=== PATIENT | male | born 1940 | race African-American/Black ===

== ENCOUNTER 2017-06-07 19:41 | Inpatient (IN) | payer MEDICARE, MEDICAID ==
[~2017-06-07] VITALS: Ht 180.3 cm; Wt 113.9 kg
[2017-06-07] MEDS ORDERED: Metoprolol 5mg/5ml Inj IVP ONE (19:45)
[2017-06-07] MEDS ORDERED: XANAX1 MG ORAL (19:46)
[2017-06-07] MEDS ORDERED: ASPIRIN81 MG ORAL (19:46)
[2017-06-07] MEDS ORDERED: PLAVIX75 MG ORAL (19:46)
[2017-06-07] MEDS ORDERED: METOPROLOL TART50 MG ORAL (19:46)
[2017-06-07] MEDS ORDERED: VITAMIN D250000 UNI1 ORAL (19:46)
[2017-06-07] MEDS ORDERED: ATORVASTATIN CA40 MG ORAL (19:46)
[2017-06-07 20:45] LABS: BASOPHILS % (AUTO) 1.2 % (0.0-2.0); EOSINOPHILS % (AUTO) 1.1 % (0.0-3.0); LYMPHOCYTES % (AUTO) 27.3 % (20.0-45.0); MEAN CORPUSCULAR HEMOGLOBIN 32.6 PG (27.0-31.0); MEAN CORPUSCULAR HGB CONC 33.6 G/DL (32.0-36.0); MEAN CORPUSCULAR VOLUME 97 FL (80-99); MEAN PLATELET VOLUME 7.6 FL (6.5-10.1); MONOCYTES % (AUTO) 7.5 % (1.0-10.0); NEUTROPHILS % (AUTO) 62.9 % (45.0-75.0); PLATELET COUNT 217 K/UL (150-450); RED BLOOD COUNT 4.25 M/UL (4.70-6.10); RED CELL DISTRIBUTION WIDTH 12.7 % (11.6-14.8); WHITE BLOOD COUNT 8.3 K/UL (4.8-10.8)
[2017-06-07 21:09] LABS: ALANINE AMINOTRANSFERASE 40 U/L (3-41); ALBUMIN/GLOBULIN RATIO 1.3 (1.0-2.7); ANION GAP 12 (5-15); ASPARTATE AMINO TRANSFERASE 34 U/L (5-40); CALCIUM 9.4 mg/dL (8.6-10.2); CARBON DIOXIDE 28 mEQ/L (20-30); CHLORIDE 101 mEQ/L (98-107); CREATININE 1.7 mg/dL (0.7-1.2); HEMOLYSIS 75; POTASSIUM 4.9 mEQ/L (3.4-4.9); SODIUM 141 mEQ/L (135-145); TOTAL PROTEIN 7.2 g/dL (6.6-8.7); TROPONIN I < 0.30 ng/mL (<=0.30)
[2017-06-07 21:19] LABS: CKMB 4.2 ng/mL (< 6.7)
[2017-06-07 21:29] LABS: APPEARANCE,URINE CLEAR; KETONES,URINE NEGATIVE (NEGATIVE); LEUKOCYTE ESTERASE ,URINE NEGATIVE (NEGATIVE); NITRITE,URINE NEGATIVE (NEGATIVE); PH,URINE 5 (4.5-8.0); PROTEIN,URINE 3+ (NEGATIVE); UROBILINOGEN,URINE 1 MG/DL (0.0-1.0)
[2017-06-07 21:53] VITALS: BP 141/84
[2017-06-07 21:57] LABS: RBC,URINE 0-2 /HPF (0 - 0); SQUAMOUS EPITHELIAL CELL,UR OCCASIONAL /LPF (NONE/OCC); WBC,URINE 0-2 /HPF (0 - 0)
[2017-06-07 21:58] LABS: BACTERIA,URINE FEW /HPF
[2017-06-07 22:04] LABS: ICTOTEST NEGATIVE
[2017-06-07] MEDS ORDERED: Diltiazem 25mg/5ml IV ONE ×2 (22:30→23:00)
[2017-06-07] MEDS ORDERED: Diltiazem 125mg/25ml Inj IV ONE (22:59)
[2017-06-07 23:42] VITALS: BP 131/92
[2017-06-08] VITALS (7 sets, daily range): BP systolic 119–146; BP diastolic 60–81
--- NOTE | 2017-06-08 00:55 | Emergency Room Report ---
History of Present Illness General Chief Complaint: Dyspnea/Respdistress Source: Patient Present Illness HPI Patient is 76-year-old male who presented after increased her dose of breath. A gradual onset of symptoms. Patient had prior history of triple-vessel bypass disease. He denies any prior history of congestive heart failure. He states he was recently seen by his doctor and was prescribed a medication which he was unable to fill due to expense. The patient stated that he had not been taking diuretics. He stated that he recently eaten some salty food. He began having increased shortness of breath. He denied any chest discomfort. Allergies: Coded Allergies: No Known Allergies (Unverified , 06/07/17) Patient History Past Medical History: see triage record Reviewed Nursing Documentation: PMH: Agreed, PSxH: Agreed Nursing Documentation-PMH Hx Cardiac Problems: Yes - TRIPLE BYPASS Hx Hypertension: Yes Hx Diabetes: Yes - BORDERLINE Review of Systems All Other Systems: negative except mentioned in HPI Physical Exam Vital Signs Date Time Temp Pulse Resp B/P (MAP) Pulse Ox O2 Delivery O2 Flow Rate FiO2 06/07/17 19:37 98.2 110 18 147/80 98 Room Air Sp02 EP Interpretation: reviewed, normal General Appearance: normal inspection, well appearing, alert, GCS 15, mild distress Head: atraumatic ENT: normal ENT inspection, hearing grossly normal, normal voice Neck: normal inspection, full range of motion, supple, no bony tend Respiratory: normal inspection, normal breath sounds, no respiratory distress, no retraction, no wheezing, rales Cardiovascular #1: regular rate, rhythm, no edema Gastrointestinal: normal inspection, normal bowel sounds, non tender, soft, no guarding, no hernia Genitourinary: no CVA tenderness Musculoskeletal: normal inspection, back normal, normal range of motion Neurologic: normal inspection, alert, oriented x3, responsive, worm packer III-XII nml as tested, speech normal Psychiatric: normal inspection, judgement/insight normal, mood/affect normal Skin: normal inspection, normal color, no rash Medical Decision Making Diagnostic Impression: Primary Impression: CHF (congestive heart failure) Additional Impression: Atrial fibrillation with RVR ER Course Patient presented for shortness of breath. Differential included but was not limited to anemia, pneumonia, pneumothorax, myocardial infarction, pericardial effusion, congestive heart failure, acidosis. Because of complexity of patient' s case laboratory testing and imaging studies were ordered. EKG interpreted by me showed atrial fibrillation with rapid ventricular response. Patient was given IV metoprolol as well as IV Cardizem. He was given IV Lasix for CHF. Dr. Lele Kellogg was contacted for inpatient management. Patient's initial troponin was negative. Labs Test 06/07/17 20:35 06/07/17 20:40 White Blood Count 8.3 K/UL (4.8-10.8) Red Blood Count 4.25 M/UL (4.70-6.10) Hemoglobin 13.9 G/DL (14.2-18.0) Hematocrit 41.3 % (42.0-52.0) Mean Corpuscular Volume 97 FL (80-99) Mean Corpuscular Hemoglobin 32.6 PG (27.0-31.0) Mean Corpuscular Hemoglobin Concent 33.6 G/DL (32.0-36.0) Red Cell Distribution Width 12.7 % (11.6-14.8) Platelet Count 217 K/UL (150-450) Mean Platelet Volume 7.6 FL (6.5-10.1) Neutrophils (%) (Auto) 62.9 % (45.0-75.0) Lymphocytes (%) (Auto) 27.3 % (20.0-45.0) Monocytes (%) (Auto) 7.5 % (1.0-10.0) Eosinophils (%) (Auto) 1.1 % (0.0-3.0) Basophils (%) (Auto) 1.2 % (0.0-2.0) Sodium Level 141 mEQ/L (135-145) Potassium Level 4.9 mEQ/L (3.4-4.9) Chloride Level 101 mEQ/L (98-107) Carbon Dioxide Level 28 mEQ/L (20-30) Anion Gap 12 (5-15) Blood Urea Nitrogen 23 mg/dL (7-23) Creatinine 1.7 mg/dL (0.7-1.2) Estimat Glomerular Filtration Rate mL/min (>60) Glucose Level 136 mg/dL (74-106) Calcium Level 9.4 mg/dL (8.6-10.2) Total Bilirubin 0.8 mg/dL (0.0-1.2) Aspartate Amino Transf (AST/SGOT) 34 U/L (5-40) Alanine Aminotransferase (ALT/SGPT) 40 U/L (3-41) Alkaline Phosphatase 42 U/L (40-129) Total Creatine Kinase 255 U/L (38-174) Creatine Kinase MB 4.2 ng/mL (< 6.7) Creatine Kinase MB Relative Index 1.6 Troponin I < 0.30 ng/mL (<=0.30) Pro-B-Type Natriuretic Peptide 1263 pg/mL (0-450) Total Protein 7.2 g/dL (6.6-8.7) Albumin 4.1 g/dL (3.5-5.2) Globulin 3.1 g/dL Albumin/Globulin Ratio 1.3 (1.0-2.7) Urine Color Yellow Urine Appearance Clear Urine pH 5 (4.5-8.0) Urine Specific [place] 1.025 (1.005-1.035) Urine Protein 3+ (NEGATIVE) Urine Glucose (UA) Negative (NEGATIVE) Urine Ketones Negative (NEGATIVE) Urine Occult Blood Negative (NEGATIVE) Urine Nitrite Negative (NEGATIVE) Urine Bilirubin 1+ (NEGATIVE) Urine Ictotest Negative Urine Urobilinogen 1 MG/DL (0.0-1.0) Urine Leukocyte Esterase Negative (NEGATIVE) Urine RBC 0-2 /HPF (0 - 0) Urine WBC 0-2 /HPF (0 - 0) Urine Squamous Epithelial Cells Occasional /LPF Urine Bacteria Few /HPF (NONE) EKG Diagnostic Results Rate: tachycardiac Rhythm: NSR ST Segments: no acute changes ASA given to the pt in ED: No Rhythm Strip Diag. Results EP Interpretation: yes Rhythm: NSR, no PVC's, no ectopy Last Vital Signs Date Time Temp Pulse Resp B/P (MAP) Pulse Ox O2 Delivery O2 Flow Rate FiO2 06/07/17 23:42 89 24 131/92 99 Room Air 06/07/17 21:53 97.9 Status: unchanged Disposition: ADMITTED INPATIENT Condition: Serious Referrals: NON PHYSICIAN (PCP) Piyush Nolasco Jun 08, 2017 00:55
[2017-06-08] MEDS: ALPRAZolam 0.5mg tab ORAL PRN ×2 (02:37→21:35)
[2017-06-08] MEDS: Metoprolol Tartrate 50mg tab ORAL SCH ×3 (02:42→21:32)
[2017-06-08] MEDS ORDERED: ALPRAZOLAM1 MG ORAL (03:15)
[2017-06-08] MEDS ORDERED: ACETAMINOPHEN-1 EAC1 ORAL (03:15)
[2017-06-08] MEDS: Aspirin Baby 81mg ORAL SCH (09:01)
[2017-06-08] MEDS: Heparin 5000 units/ml inj SUBQ SCH ×2 (09:23→21:33)
[2017-06-08 10:51] LABS: TROPONIN I < 0.30 ng/mL (<=0.30)
[2017-06-08 10:56] LABS: ALANINE AMINOTRANSFERASE 33 U/L (3-41); ALBUMIN/GLOBULIN RATIO 1.5 (1.0-2.7); ANION GAP 11 (5-15); ASPARTATE AMINO TRANSFERASE 21 U/L (5-40); CALCIUM 9.7 mg/dL (8.6-10.2); CARBON DIOXIDE 31 mEQ/L (20-30); CHLORIDE 100 mEQ/L (98-107); CHOLESTEROL 121 mg/dL (< 200); CHOLESTEROL/HDL RATIO 3.1 (3.3-4.4); CREATININE 2.1 mg/dL (0.7-1.2); HEMOLYSIS 10; LDL CHOLESTEROL (CALC.) 61 mg/dL (60-99); POTASSIUM 4.9 mEQ/L (3.4-4.9); SODIUM 142 mEQ/L (135-145)
--- NOTE | 2017-06-08 11:24 | History & Physical ---
History and Physical History & Physicial HPI 76-year-old male presented to the ER with increasing shortness of breath and unable to manage at home. He noted the symptoms to be gradual. Patient had prior history of triple-vessel bypass disease. He denies any prior history of congestive heart failure. He states he was recently seen by his doctor but did not fill the recommended medications. The patient stated that he had not been taking diuretics prior. He denies chest pain or radiation of pain. He denies cough or sputum Allergies: No Known Allergies (Unverified , 06/07/17) Past Medical History: CAD, diabetes, HTN Reviewed of systems: as above medications/allergies: reviewed Physical exam: WDWN NAD reduced breath sounds bilaterally with some crackles [id number] without MRG NABS nontender no HSM no CC noted edema weak with some confusion nonfocal Labs Test 06/07/17 20:35 06/07/17 20:40 06/08/17 09:45 White Blood Count 8.3 K/UL (4.8-10.8) Red Blood Count 4.25 M/UL (4.70-6.10) Hemoglobin 13.9 G/DL (14.2-18.0) Hematocrit 41.3 % (42.0-52.0) Mean Corpuscular Volume 97 FL (80-99) Mean Corpuscular Hemoglobin 32.6 PG (27.0-31.0) Mean Corpuscular Hemoglobin Concent 33.6 G/DL (32.0-36.0) Red Cell Distribution Width 12.7 % (11.6-14.8) Platelet Count 217 K/UL (150-450) Mean Platelet Volume 7.6 FL (6.5-10.1) Neutrophils (%) (Auto) 62.9 % (45.0-75.0) Lymphocytes (%) (Auto) 27.3 % (20.0-45.0) Monocytes (%) (Auto) 7.5 % (1.0-10.0) Eosinophils (%) (Auto) 1.1 % (0.0-3.0) Basophils (%) (Auto) 1.2 % (0.0-2.0) Sodium Level 141 mEQ/L (135-145) 142 mEQ/L (135-145) Potassium Level 4.9 mEQ/L (3.4-4.9) 4.9 mEQ/L (3.4-4.9) Chloride Level 101 mEQ/L (98-107) 100 mEQ/L (98-107) Carbon Dioxide Level 28 mEQ/L (20-30) 31 mEQ/L (20-30) Anion Gap 12 (5-15) 11 (5-15) Blood Urea Nitrogen 23 mg/dL (7-23) 29 mg/dL (7-23) Creatinine 1.7 mg/dL (0.7-1.2) 2.1 mg/dL (0.7-1.2) Estimat Glomerular Filtration Rate mL/min (>60) mL/min (>60) Glucose Level 136 mg/dL (74-106) 133 mg/dL (74-106) Calcium Level 9.4 mg/dL (8.6-10.2) 9.7 mg/dL (8.6-10.2) Total Bilirubin 0.8 mg/dL (0.0-1.2) 1.0 mg/dL (0.0-1.2) Aspartate Amino Transf (AST/SGOT) 34 U/L (5-40) 21 U/L (5-40) Alanine Aminotransferase (ALT/SGPT) 40 U/L (3-41) 33 U/L (3-41) Alkaline Phosphatase 42 U/L (40-129) 45 U/L (40-129) Total Creatine Kinase 255 U/L (38-174) Creatine Kinase MB 4.2 ng/mL (< 6.7) Creatine Kinase MB Relative Index 1.6 Troponin I < 0.30 ng/mL (<=0.30) < 0.30 ng/mL (<=0.30) Pro-B-Type Natriuretic Peptide 1263 pg/mL (0-450) Total Protein 7.2 g/dL (6.6-8.7) 7.0 g/dL (6.6-8.7) Albumin 4.1 g/dL (3.5-5.2) 4.3 g/dL (3.5-5.2) Globulin 3.1 g/dL 2.7 g/dL Albumin/Globulin Ratio 1.3 (1.0-2.7) 1.5 (1.0-2.7) Urine Color Yellow Urine Appearance Clear Urine pH 5 (4.5-8.0) Urine Specific [place] 1.025 (1.005-1.035) Urine Protein 3+ (NEGATIVE) Urine Glucose (UA) Negative (NEGATIVE) Urine Ketones Negative (NEGATIVE) Urine Occult Blood Negative (NEGATIVE) Urine Nitrite Negative (NEGATIVE) Urine Bilirubin 1+ (NEGATIVE) Urine Ictotest Negative Urine Urobilinogen 1 MG/DL (0.0-1.0) Urine Leukocyte Esterase Negative (NEGATIVE) Urine RBC 0-2 /HPF (0 - 0) Urine WBC 0-2 /HPF (0 - 0) Urine Squamous Epithelial Cells Occasional /LPF Urine Bacteria Few /HPF (NONE) Triglycerides Level 105 mg/dL (< 150) Cholesterol Level 121 mg/dL (< 200) LDL Cholesterol 61 mg/dL (60-99) HDL Cholesterol 39 mg/dL (> 60) Cholesterol/HDL Ratio 3.1 (3.3-4.4) Thyroid Stimulating Hormone (TSH) 1.500 uIU/mL (0.300-4.500) IMPRESSION pulmonary edema respiratory insufficiency renal insufficiency, chronic CAD CABG diabetes hypertension PLAN diurese heparin sq aspirin followup labs and cxr PT may need short term rehab impression, plan, and exam edited and reviewed in detail care discussed with SHIMON MAHAJAN Jun 08, 2017 11:24
--- NOTE | 2017-06-08 12:47 | Diagnostic Imaging Report ---
Indication: Dyspnea Comparison: None A single view chest radiograph was obtained. Findings: No definite infiltrate or pulmonary vascular congestion identified. Lung volumes are low but clear. Sternotomy noted. The heart is enlarged. The aorta is mildly enlarged consistent with atherosclerotic vascular disease. The bones are osteopenic. Impression: No acute disease
[2017-06-09 00:03] VITALS: BP 103/67
[2017-06-09 03:52] VITALS: BP 130/104
[2017-06-09] MEDS ORDERED: Metoprolol Tartrate 50mg tab ORAL ONE (04:00)
[2017-06-09 07:45] VITALS: BP 109/61
--- NOTE | 2017-06-09 08:31 | Consultation ---
DATE OF CONSULTATION: CARDIOLOGY CONSULTATION REQUESTING PHYSICIAN: Lele Kellogg M.D. Reason For Consultation: Shortness of breath in the setting of ischemic heart disease and elevated natriuretic peptide assay. History Of Present Illness: This 76-year-old male, was seen in the emergency room earlier with complaints of shortness of breath. He notes the onset being gradual progressing over a day or 2 and worsening this evening to the point where he has to come to the emergency room for evaluation. The patient was recently seen by his primary care physician and started a new medication, although he was not able to fill it due to cost. The patient denies taking any diuretic therapy at home. He has been compliant with his other medications. He has been re-eating some salty foods. He has not had any chest pain. In the emergency room, the patient had a blood pressure 147/80, heart rate 110 and respiratory rate 18. He was afebrile. He was given a dose of intravenous furosemide and admitted to the cardiac observation unit. Past Medical History: Includes hypertension, coronary artery disease, history of coronary artery bypass graft surgery, type 2 diabetes mellitus, possible hyperlipidemia. Medications: Prior to admission, reviewed and reconciled although patient is unable to give a complete list. ALLERGIES: None known. SOCIAL HISTORY: Denies smoking, alcohol, or substance abuse. Review Of Systems: No fevers. No cough. No leg swelling. No difficulty voiding. No change in bowel habits. No history of asthma or blood clots in the legs. No history of prostate cancer. No history of seizure or stroke. Diabetes managed with diet alone. The patient unaware of his cholesterol level. PHYSICAL EXAMINATION: Vital Signs: Blood pressure 131/92, pulse 89, respirations 24. No fever. Room air oxygen saturation 99%. Neck: Supple. Jugular venous pressure is slightly elevated. No thyromegaly. No accessory muscle use. Lungs: With few rales. Chest wall without deformity. Median sternotomy scar. CARDIAC: Irregularly irregular rate and rhythm. ABDOMEN: Soft. EXTREMITIES: Trace edema. Laboratory Data: White count 8.3, hemoglobin 13.9, potassium 4.9, BUN 23, and creatinine 1.7. Troponin negative. Pro-natriuretic peptide 1263. IMPRESSION: 1. Acute diastolic congestive heart failure. 2. Ischemic cardiomyopathy. 3. Chronic kidney disease. 4. Hypertensive heart disease. 5. Paroxysmal atrial fibrillation. 6. Type 2 diabetes mellitus. 7. History of coronary artery bypass graft. PLAN: 1. Cardiac monitoring. 2. Antiplatelet therapy. 3. DVT prophylaxis. 4. Beta-blockade. 5. Continue statin drug. 6. Check lipid panel. Consider full anticoagulation for cardioembolic prophylaxis if persisting atrial fibrillation noted. 7. Diuresis. 8. Titrate antihypertensive. 9. Check echocardiogram. 10. We will consider further ischemia workup depending on clinical course. Derrick Burch M.D. DR: YUE JOB#: [id number] CC:
[2017-06-09 08:35] LABS: ANION GAP 10 (5-15); CALCIUM 9.5 mg/dL (8.6-10.2); CARBON DIOXIDE 30 mEQ/L (20-30); CHLORIDE 102 mEQ/L (98-107); CREATININE 2.1 mg/dL (0.7-1.2); HEMOLYSIS 10; POTASSIUM 4.7 mEQ/L (3.4-4.9); SODIUM 142 mEQ/L (135-145)
[2017-06-09] MEDS: Metoprolol Tartrate 50mg tab ORAL SCH ×4 (09:00→20:47)
[2017-06-09] MEDS: Aspirin Baby 81mg ORAL SCH (09:19)
[2017-06-09] MEDS: Eliquis 2.5mg tablet ORAL SCH ×2 (09:19→17:16)
--- NOTE | 2017-06-09 10:26 | Diagnostic Imaging Report ---
Indication: DYSPNEA Technique: 2 views of the chest Comparison: 06/07/2017 Findings: Atelectasis is seen at both lung bases. There are small bilateral pleural effusions again demonstrated. The heart size is borderline enlarged. There are degenerative changes of the thoracic spine. There are median sternotomy sutures. Findings are overall unchanged Impression: Unchanged, over 2 days, findings as above.
[2017-06-09 12:19] VITALS: BP 103/67
--- NOTE | 2017-06-09 15:08 | General Progress Note ---
Assessment/Plan Assessment/Plan IMPRESSION pulmonary edema respiratory insufficiency renal insufficiency, chronic CAD CABG diabetes hypertension PLAN diurese as per cards heparin sq aspirin followup labs and cxr and adjust PT may need short term rehab- will discuss with patient and expedite impression, plan, and exam edited and reviewed in detail care discussed with RN Subjective Allergies: Coded Allergies: No Known Allergies (Unverified , 06/07/17) Subjective care noted some mild improvement Objective Last 24 Hour Vital Signs Date Time Temp Pulse Resp B/P (MAP) Pulse Ox O2 Delivery O2 Flow Rate FiO2 06/09/17 12:19 96.8 78 20 103/67 91 Nasal Cannula 3.5 06/09/17 12:15 91 06/09/17 09:24 78 97/59 06/09/17 08:00 93 06/09/17 07:45 97.2 78 20 109/61 99 Nasal Cannula 3.0 06/09/17 04:27 105 129/81 06/09/17 04:00 91 06/09/17 03:52 97.8 102 22 130/104 100 Nasal Cannula 3.5 102 06/09/17 03:51 97.8 102 06/09/17 00:03 96.8 78 20 103/67 91 Nasal Cannula 3.5 06/09/17 00:00 105 06/08/17 21:32 108 138/43 06/08/17 20:00 112 06/08/17 19:50 97.5 57 20 132/81 92 Nasal Cannula 3.5 06/08/17 16:00 97 06/08/17 16:00 98.0 96 20 129/63 94 Nasal Cannula 3.0 Intake and Output 06/09/17 06/10/17 19:00 07:00 Intake Total 240 ml Balance 240 ml Intake Oral 240 ml Laboratory Tests 06/09/17 07:20: Sodium Level 142, Potassium Level 4.7, Chloride Level 102, Carbon Dioxide Level 30, Anion Gap 10, Blood Urea Nitrogen 37H, Creatinine 2.1H, Estimat Glomerular Filtration Rate , Glucose Level 132H, Calcium Level 9.5, Pro-B-Type Natriuretic Peptide 1264H Height (Feet): 5 Height (Inches): 11.00 Weight (Pounds): 248 Objective WDWN NAD obese reduced breath sounds bilaterally without rhonchi or wheeze some basilar crackles [id number] without MRG NABS nontender no HSM no CC some edema nonfocal SHIMON MOHR Jun 09, 2017 15:08
[2017-06-09 16:00] VITALS: BP 135/65
[2017-06-09 20:00] VITALS: BP 130/73
--- NOTE | 2017-06-09 21:00 | Progress Note ---
DATE: 06/08/2017 CARDIOLOGY PROGRESS NOTE Subjective: The patient has less shortness of breath. Still feels fatigued with activity. No chest pain. Monitored rhythm, atrial fibrillation with episodes of rapid ventricular response. OBJECTIVE: Vital Signs: Blood pressure 132/81, pulse 112, respiratory rate 20, and afebrile. HEENT: Conjunctivae are pink. Oropharynx clear. Neck: Supple. Jugular venous pressure is slightly elevated. Carotid upstrokes without delay. LUNGS: Diminished breath sounds. No wheezing or rales. Cardiac: Irregularly irregular. Normal S1 and S2. A 1/6 systolic murmur at apex. ABDOMEN: Soft. EXTREMITIES: With trace edema. Laboratory And Diagnostic Data: Echocardiogram revealed normal ejection fraction and mild mitral regurgitation. BUN increased to 29. Creatinine increased to 2.1. Potassium 4.9. Troponin negative. Total cholesterol is 121 with LDL of 61. IMPRESSION: 1. Acute diastolic congestive heart failure. 2. Paroxysmal atrial fibrillation with increased ventricular response. 3. Ischemic cardiomyopathy with history of coronary artery bypass graft. 4. Possible myocardial infarction, acute myocardial ischemia. 5. Mitral regurgitation. 6. Hypertensive heart disease. 7. Acute on chronic renal failure. PLAN: 1. Hold diuretics. 2. Continue cardiac monitoring. 3. Advance beta-blockade for rate control. 4. Add apixaban for cardioembolic prophylaxis. 5. Recheck natriuretic peptide assay. 6. We will try to contact primary care doctor to expand database. Derrick Burch M.D. DR: GEORGES JOB#: [id number] CC:
[2017-06-10] VITALS: BP 130/73
[2017-06-10 04:00] VITALS: BP 103/65
--- NOTE | 2017-06-10 05:45 | Progress Note ---
CARDIOLOGY PROGRESS NOTE Subjective: The patient is anxious to go home. He still feels short of breath. His blood pressure was low earlier today and his metoprolol dose was held by his nursing staff, although I was not contacted. The patient now recalls more of this prior history. He notes a history of rheumatic heart disease and atrial fibrillation. He was recently given a prescription for a blood thinner, but because of the cost, he did not fill it. OBJECTIVE: Vital Signs: Blood pressure 103/68, earlier 97/59; heart rate 78 to 108; respiratory 18 to 22; and he is afebrile. HEENT: Conjunctivae are pink. Oropharynx clear. NECK: Supple and obese. Jugular venous pressure grossly normal. LUNGS: With few rales. Cardiac: Irregularly irregular. Normal S1 and S2 with a 1/6 early systolic apical murmur. ABDOMEN: Soft and nontender. EXTREMITIES: Trace dependent edema. Laboratory Data: BUN 37, creatinine 2.1, potassium 4.7, pro-natriuretic peptide 1264, unchanged. IMPRESSION: 1. Rheumatic heart disease. 2. Chronic atrial fibrillation. 3. Mitral insufficiency. 4. Acute on chronic diastolic congestive heart failure. 5. Ischemic cardiomyopathy with prior coronary artery bypass graft. 6. Acute on chronic renal failure, post diuresis. Plan: Plan is better rate control of atrial fibrillation. Metoprolol dose has been advanced. We will start apixaban for cardioembolic prophylaxis. Can discontinue Plavix and maintain low-dose aspirin. Hold angiotensin-converting enzyme inhibitor therapy for now in view of elevated creatinine and low range blood pressure. The patient wishes to follow up with his primary verification engineer at [facility]. I have stressed the benefits of anticoagulation therapy. I think apparently agreed as well. Derrick Burch M.D. DR: YUE JOB#: [id number] CC:
[2017-06-10 08:00] VITALS: BP 131/66
[2017-06-10] MEDS: Eliquis 2.5mg tablet ORAL SCH ×2 (08:19→17:22)
[2017-06-10] MEDS: Aspirin Baby 81mg ORAL SCH (08:20)
[2017-06-10] MEDS: Metoprolol Tartrate 50mg tab ORAL SCH ×2 (08:20→20:58)
--- NOTE | 2017-06-10 09:20 | General Progress Note ---
Assessment/Plan Assessment/Plan IMPRESSION pulmonary edema respiratory insufficiency renal insufficiency, chronic CAD CABG diabetes hypertension PLAN meds noted aspirin followup labs and cxr noted short term rehab- still labile impression, plan, and exam edited and reviewed in detail care discussed with RN Subjective Allergies: Coded Allergies: No Known Allergies (Unverified , 06/07/17) Subjective care noted on oxygen improvement mild sob Objective Last 24 Hour Vital Signs Date Time Temp Pulse Resp B/P (MAP) Pulse Ox O2 Delivery O2 Flow Rate FiO2 06/10/17 08:20 78 131/66 06/10/17 08:00 98.6 78 20 131/66 97 Nasal Cannula 3.0 06/10/17 08:00 113 06/10/17 04:00 100 06/10/17 04:00 97.8 74 18 103/65 94 Nasal Cannula 3.0 06/10/17 00:00 97.2 57 18 130/73 94 Nasal Cannula 3.0 06/09/17 23:37 95 06/09/17 20:47 62 130/73 06/09/17 20:05 120 06/09/17 20:00 97.7 62 18 130/73 94 Nasal Cannula 3.0 06/09/17 16:00 97.7 71 19 135/65 94 Nasal Cannula 3.0 06/09/17 16:00 97.7 71 19 135/65 94 Nasal Cannula 3.0 06/09/17 15:34 105 06/09/17 12:19 96.8 78 20 103/67 91 Nasal Cannula 3.5 06/09/17 12:15 91 Intake and Output 06/10/17 06/11/17 19:00 07:00 Intake Total 430 ml Balance 430 ml Intake Oral 430 ml Labs Test 06/07/17 20:35 06/07/17 20:40 06/08/17 09:45 06/09/17 07:20 White Blood Count 8.3 K/UL (4.8-10.8) Red Blood Count 4.25 M/UL (4.70-6.10) Hemoglobin 13.9 G/DL (14.2-18.0) Hematocrit 41.3 % (42.0-52.0) Mean Corpuscular Volume 97 FL (80-99) Mean Corpuscular Hemoglobin 32.6 PG (27.0-31.0) Mean Corpuscular Hemoglobin Concent 33.6 G/DL (32.0-36.0) Red Cell Distribution Width 12.7 % (11.6-14.8) Platelet Count 217 K/UL (150-450) Mean Platelet Volume 7.6 FL (6.5-10.1) Neutrophils (%) (Auto) 62.9 % (45.0-75.0) Lymphocytes (%) (Auto) 27.3 % (20.0-45.0) Monocytes (%) (Auto) 7.5 % (1.0-10.0) Eosinophils (%) (Auto) 1.1 % (0.0-3.0) Basophils (%) (Auto) 1.2 % (0.0-2.0) Sodium Level 141 mEQ/L (135-145) 142 mEQ/L (135-145) 142 mEQ/L (135-145) Potassium Level 4.9 mEQ/L (3.4-4.9) 4.9 mEQ/L (3.4-4.9) 4.7 mEQ/L (3.4-4.9) Chloride Level 101 mEQ/L (98-107) 100 mEQ/L (98-107) 102 mEQ/L (98-107) Carbon Dioxide Level 28 mEQ/L (20-30) 31 mEQ/L (20-30) 30 mEQ/L (20-30) Anion Gap 12 (5-15) 11 (5-15) 10 (5-15) Blood Urea Nitrogen 23 mg/dL (7-23) 29 mg/dL (7-23) 37 mg/dL (7-23) Creatinine 1.7 mg/dL (0.7-1.2) 2.1 mg/dL (0.7-1.2) 2.1 mg/dL (0.7-1.2) Estimat Glomerular Filtration Rate mL/min (>60) mL/min (>60) mL/min (>60) Glucose Level 136 mg/dL (74-106) 133 mg/dL (74-106) 132 mg/dL (74-106) Calcium Level 9.4 mg/dL (8.6-10.2) 9.7 mg/dL (8.6-10.2) 9.5 mg/dL (8.6-10.2) Total Bilirubin 0.8 mg/dL (0.0-1.2) 1.0 mg/dL (0.0-1.2) Aspartate Amino Transf (AST/SGOT) 34 U/L (5-40) 21 U/L (5-40) Alanine Aminotransferase (ALT/SGPT) 40 U/L (3-41) 33 U/L (3-41) Alkaline Phosphatase 42 U/L (40-129) 45 U/L (40-129) Total Creatine Kinase 255 U/L (38-174) Creatine Kinase MB 4.2 ng/mL (< 6.7) Creatine Kinase MB Relative Index 1.6 Troponin I < 0.30 ng/mL (<=0.30) < 0.30 ng/mL (<=0.30) Pro-B-Type Natriuretic Peptide 1263 pg/mL (0-450) 1264 pg/mL (0-450) Total Protein 7.2 g/dL (6.6-8.7) 7.0 g/dL (6.6-8.7) Albumin 4.1 g/dL (3.5-5.2) 4.3 g/dL (3.5-5.2) Globulin 3.1 g/dL 2.7 g/dL Albumin/Globulin Ratio 1.3 (1.0-2.7) 1.5 (1.0-2.7) Urine Color Yellow Urine Appearance Clear Urine pH 5 (4.5-8.0) Urine Specific [place] 1.025 (1.005-1.035) Urine Protein 3+ (NEGATIVE) Urine Glucose (UA) Negative (NEGATIVE) Urine Ketones Negative (NEGATIVE) Urine Occult Blood Negative (NEGATIVE) Urine Nitrite Negative (NEGATIVE) Urine Bilirubin 1+ (NEGATIVE) Urine Ictotest Negative Urine Urobilinogen 1 MG/DL (0.0-1.0) Urine Leukocyte Esterase Negative (NEGATIVE) Urine RBC 0-2 /HPF (0 - 0) Urine WBC 0-2 /HPF (0 - 0) Urine Squamous Epithelial Cells Occasional /LPF Urine Bacteria Few /HPF (NONE) Triglycerides Level 105 mg/dL (< 150) Cholesterol Level 121 mg/dL (< 200) LDL Cholesterol 61 mg/dL (60-99) HDL Cholesterol 39 mg/dL (> 60) Cholesterol/HDL Ratio 3.1 (3.3-4.4) Thyroid Stimulating Hormone (TSH) 1.500 uIU/mL (0.300-4.500) Height (Feet): 5 Height (Inches): 11.00 Weight (Pounds): 251 Objective WDWN NAD obese reduced breath sounds bilaterally without rhonchi or wheeze some basilar crackles [id number] without MRG NABS nontender no HSM no CC some edema nonfocal SHIMON MOHR Jun 10, 2017 09:20
[2017-06-10] MEDS ORDERED: ALPRAZOLAM1 M2 ORAL (10:54)
[2017-06-10] MEDS ORDERED: ELIQUIS5 MG PO (10:55)
[2017-06-10] MEDS ORDERED: ATORVASTATIN CA10 MG ORAL (10:56)
[2017-06-10] MEDS ORDERED: METOPROLOL TAR100 M1 ORAL (10:57)
[2017-06-10 11:41] VITALS: BP 134/69
[2017-06-10 16:42] VITALS: BP 116/62
[2017-06-10 20:00] VITALS: BP 118/70
[2017-06-11] VITALS: BP 109/70
[2017-06-11 04:00] VITALS: BP 114/67
--- NOTE | 2017-06-11 06:00 | Progress Note ---
DATE: 06/10/2017 CARDIOLOGY PROGRESS NOTE Subjective: The patient has less shortness of breath. Still feels weak. No leg swelling. No palpitations. Monitor atrial fibrillation. Rates labile, but overall control and improved. Heart rate is 57 to 113. OBJECTIVE: Vital Signs: Blood pressure exam 131/66, pulse 78, and respiratory rate 20. NECK: Supple. LUNGS: Clear. Cardiac: Irregularly irregular. Normal S1 and S2. A 1/6 apical murmur. ABDOMEN: Soft. EXTREMITIES: No edema. IMPRESSION: 1. Atrial fibrillation with rapid ventricular response, improved. 2. Acute on chronic renal failure post diuresis. 3. Rheumatic heart disease. 4. Acute on chronic diastolic congestive heart failure functionally decline. 5. Mild hypoxia with oxygen saturation of 91% on room air. PLAN: 1. Continue apixaban for cardioembolic prophylaxis. 2. Titrate beta-yovani for rate control. If blood pressure parameters increased may add angiotensin-converting enzyme inhibitor. 3. Recheck laboratory studies. 4. Physical and occupational therapy. Derrick Burch M.D. DR: GEORGES JOB#: [id number] CC:
[2017-06-11 08:00] VITALS: BP 122/63
[2017-06-11] MEDS: Aspirin Baby 81mg ORAL SCH (08:42)
[2017-06-11] MEDS: Eliquis 2.5mg tablet ORAL SCH (08:42)
[2017-06-11 08:43] VITALS: BP 122/63
[2017-06-11] MEDS: Metoprolol Tartrate 50mg tab ORAL SCH (08:43)
[2017-06-11 08:45] LABS: BASOPHILS % (AUTO) 0.9 % (0.0-2.0); EOSINOPHILS % (AUTO) 1.4 % (0.0-3.0); LYMPHOCYTES % (AUTO) 31.9 % (20.0-45.0); MEAN CORPUSCULAR HEMOGLOBIN 31.5 PG (27.0-31.0); MEAN CORPUSCULAR VOLUME 99 FL (80-99); MEAN PLATELET VOLUME 6.9 FL (6.5-10.1); MONOCYTES % (AUTO) 8.8 % (1.0-10.0); PLATELET COUNT 219 K/UL (150-450); RED BLOOD COUNT 4.55 M/UL (4.70-6.10); RED CELL DISTRIBUTION WIDTH 12.9 % (11.6-14.8); WHITE BLOOD COUNT 7.2 K/UL (4.8-10.8)
[2017-06-11 09:02] LABS: ALANINE AMINOTRANSFERASE 20 U/L (3-41); ALBUMIN/GLOBULIN RATIO 1.2 (1.0-2.7); ANION GAP 9 (5-15); ASPARTATE AMINO TRANSFERASE 16 U/L (5-40); CALCIUM 9.4 mg/dL (8.6-10.2); CARBON DIOXIDE 30 mEQ/L (20-30); CHLORIDE 102 mEQ/L (98-107); CREATININE 1.7 mg/dL (0.7-1.2); HEMOLYSIS 4; MAGNESIUM 2.4 mg/dL (1.7-2.5); POTASSIUM 4.6 mEQ/L (3.4-4.9); SODIUM 141 mEQ/L (135-145); TOTAL PROTEIN 7.3 g/dL (6.6-8.7)
--- NOTE | 2017-06-11 10:08 | General Progress Note ---
Assessment/Plan Assessment/Plan IMPRESSION pulmonary edema respiratory insufficiency renal insufficiency, chronic CAD CABG diabetes hypertension PLAN meds noted aspirin followup labs and cxr noted short term rehab- still labile and requires PT monitor labs closely after dc reviewed current labs patient agreeable to plan impression, plan, and exam edited and reviewed in detail care discussed with RN Subjective Allergies: Coded Allergies: No Known Allergies (Unverified , 06/07/17) Subjective care noted on oxygen improvement mild sob unsteady with activity Objective Last 24 Hour Vital Signs Date Time Temp Pulse Resp B/P (MAP) Pulse Ox O2 Delivery O2 Flow Rate FiO2 06/11/17 08:43 101 122/63 06/11/17 08:00 102 06/11/17 08:00 96.4 101 23 122/63 95 Nasal Cannula 3.0 06/11/17 04:00 97.3 77 19 114/67 95 Nasal Cannula 3.0 06/11/17 03:22 95 06/11/17 00:00 97.3 66 20 109/70 95 Nasal Cannula 3.0 06/10/17 23:46 91 06/10/17 20:58 100 118/70 06/10/17 20:00 97.6 82 20 118/70 97 Nasal Cannula 3.0 06/10/17 19:04 90 06/10/17 16:42 98.0 82 18 116/62 91 Room Air 06/10/17 12:00 94 06/10/17 11:41 98.4 82 20 134/69 96 Nasal Cannula 2.0 Intake and Output 06/11/17 06/12/17 19:00 07:00 Intake Total 260 ml Balance 260 ml Intake Oral 260 ml Laboratory Tests 06/11/17 07:20: White Blood Count 7.2, Red Blood Count 4.55L, Hemoglobin 14.4, Hematocrit 44.9, Mean Corpuscular Volume 99, Mean Corpuscular Hemoglobin 31.5H, Mean Corpuscular Hemoglobin Concent 32.0, Red Cell Distribution Width 12.9, Platelet Count 219, Mean Platelet Volume 6.9, Neutrophils (%) (Auto) 57.0, Lymphocytes (%) (Auto) 31.9, Monocytes (%) (Auto) 8.8, Eosinophils (%) (Auto) 1.4, Basophils (%) (Auto ) 0.9, Sodium Level 141, Potassium Level 4.6, Chloride Level 102, Carbon Dioxide Level 30, Anion Gap 9, Blood Urea Nitrogen 35H, Creatinine 1.7H, Estimat Glomerular Filtration Rate , Glucose Level 112H, Calcium Level 9.4, Magnesium Level 2.4, Total Bilirubin 0.9, Aspartate Amino Transf (AST/SGOT) 16, Alanine Aminotransferase (ALT/SGPT) 20, Alkaline Phosphatase 41, Pro-B-Type Natriuretic Peptide 1334H, Total Protein 7.3, Albumin 4.0, Globulin 3.3, Albumin /Globulin Ratio 1.2 Height (Feet): 5 Height (Inches): 11.00 Weight (Pounds): 251 Objective WDWN NAD obese reduced breath sounds bilaterally without rhonchi or wheeze some basilar crackles [id number] without MRG NABS nontender no HSM no CC some edema nonfocal SHIMON MOHR Jun 11, 2017 10:08
[2017-06-11] MEDS ORDERED: NS Irrig 1000ml ONE (11:14)
--- NOTE | 2017-06-11 23:13 | Diagnostic Imaging Report ---
APPROVED REPORT CPT Code: 14275 Present Symptoms Comments: Hip pain BILATERAL: Imaging reveals a patent deep venous system bilaterally. There is no evidence of thrombus within the femoral, popliteal or tibial segments. The greater saphenous veins are also within normal limits. Doppler indicates normal spontaneous flow within these segments.
--- NOTE | 2017-06-12 01:30 | Progress Note ---
DATE: 06/11/2017 Subjective: The patient without new complaints, still with some shortness of breath. Episodes of rapid heart rate. OBJECTIVE: Vital Signs: Blood pressure 122/63, heart rate 101, respiratory rate 19 to 23. He is afebrile. NECK: Supple. Jugular venous pressure normal. LUNGS: Clear. CARDIAC: Irregularly irregular. Normal S1 and S2. ABDOMEN: Soft. EXTREMITIES: Trace edema. Laboratory and Diagnostic Data: White count to 7.2, hemoglobin 14. Potassium 4.6, BUN 35, creatinine 1.7. Pro-natriuretic peptide is 1300. IMPRESSION: 1. Atrial fibrillation with improved rate control. 2. Chronic diastolic congestive heart failure. 3. Rheumatic heart disease. 4. Mitral regurgitation. 5. Hypertensive heart disease. 6. Chronic kidney disease with exacerbation post diuresis, now resolved. PLAN: 1. Agree with rehabilitation. 2. Titrate Cardizem for rate control. 3. May need digitalis. 4. No current need for diuresis. 5. Maintain Apixaban for cardioembolic prophylaxis. Derrick Burch M.D. DR: ANJELICA JOB#: [id number] CC:
--- NOTE | 2017-06-12 13:58 | Discharge Summary ---
Discharge Summary Hospital Course Date of Admission Jun 07, 2017 at 22:16 Date of Discharge Jun 11, 2017 at 11:15 Admitting Diagnosis CHF HPI Nick Ibrahim is a 76 year old male who was admitted on Jun 07, 2017 at 22 :16 for Congestive Heart Failure Hospital Course dc summary #[id number] Discharge Medications Continued Medications: Alprazolam* (Xanax*) 1 Mg Tablet 1 MG ORAL TWICE A DAY PRN for For Anxiety, TAB Apixaban (Eliquis) 5 Mg Tablet 5 MG PO TWICE A DAY, TAB Aspirin* (Aspirin*) 81 Mg Tab.chew 81 MG ORAL DAILY, TAB Atorvastatin Calcium* (Lipitor*) 10 Mg Tablet 10 MG ORAL BEDTIME, TAB Metoprolol Tartrate* (Metoprolol Tartrate*) 100 Mg Tablet 100 MG ORAL EVERY 12 HOURS, TAB Discontinued Medications: Acetaminophen With Codeine (T#3) (Tylenol #3 Tab*) Y Tab 1 TAB ORAL PRN for For Pain, TAB Alprazolam (Alprazolam) 1 Mg Tab.rapdis 1 MG ORAL BID PRN for For Anxiety, TAB Atorvastatin Calcium* (Atorvastatin Calcium*) 40 Mg Tablet 40 MG ORAL BEDTIME, TAB Clopidogrel Bisulfate* (Plavix*) 75 Mg Tablet 75 MG ORAL DAILY, TAB Ergocalciferol (Vitamin D2)* (Vitamin D*) 50,000 Unit Capsule [id number] UNIT ORAL ONCE A WEEK, CAP Metoprolol Tartrate* (Metoprolol Tartrate*) 50 Mg Tablet 50 MG ORAL EVERY 12 HOURS, TAB 0 Refills Discharge Discharge Disposition Patient was discharged to SNF/Subacute Facility(03) Discharge Diagnoses: Discharge Instructions Discharge Instructions Special Instructions I have been assigned to complete a D/C Summary on this account. I was not involved in the patient management Alva Santos NP (Vanchtein) Jun 12, 2017 13:58
--- NOTE | 2017-06-12 16:09 | Cardiology Report ---
APPROVED REPORT EXAM: Two-dimensional and M-mode echocardiogram with Doppler and color Doppler. INDICATION Congestive Heart Failure M-Mode DIMENSIONS IVSd1.7 (0.7-1.1cm)Left Atrium (MM)4.9 (1.6-4.0cm) LVDd3.1 (3.5-5.6cm)Aortic Root3.6 (2.0-3.7cm) PWd1.5 (0.7-1.1cm)Aortic Cusp Exc.2.2 (1.5-2.0cm) LVDs1.8 (2.5-4.0cm) PWs1.6 cm Normal left ventricular chamber size, systolic function and wall motion. Left ventricular ejection fraction estimated to be 55-60%. No evidence of left ventricular hypertrophy. No evidence of pericardial effusion. Right cardiac chamber sizes are within normal limits. Mild left atrial enlargement by 2D. Mild focal aortic valve sclerosis with adequate cusp excursion. Thickened mitral valve leaflets with normal excursion. Normal mitral annulus and aortic root calcification. Pulmonic valve not well visualized. Normal tricuspid valve structure. A color flow and spectral Doppler study was performed and revealed: Trace aortic regurgitation. Mild mitral regurgitation. Mitral diastolic dysfunction is not obtainable due to A-FIB. Trace tricuspid regurgitation. Tricuspid systolic velocities suggests peak right ventricular systolic pressure of 19 mmHg
--- NOTE | 2017-06-13 14:01 | Discharge Summary 2 SIG ---
DATE OF ADMISSION: 06/07/2017 DATE OF DISCHARGE: 06/11/2017 Reason For Admission: A 76-year-old male with history of coronary artery disease, status post coronary artery bypass graft with triple bypass, diabetes, hypertension, and chronic renal insufficiency presented with shortness of breath. The patient stated he was not taking any diuretic. Workup in the Emergency Room revealed tachycardia - 110. EKG showed atrial fibrillation with rapid ventricular response. BUN -23 and creatinine -1.7. Pulse oximetry was stable on room air. Urinalysis was negative for evidence of urinary tract infection. Chest x-ray revealed mild pulmonary edema. The patient was admitted for further management. ADMITTING DIAGNOSES: 1. Pulmonary edema. 2. Atrial fibrillation with rapid ventricular response. 3. Chronic renal insufficiency. 4. Coronary artery disease with history of coronary artery bypass graft. 5. Hypertension. 6. Diabetes. Hospital Course: The patient was admitted to telemetry floor. Cardiology consult was requested. The patient was continued on antiplatelet therapy and statin. Rate was controlled with beta-yovani, dose increased. Per portable machine cutter, atrial fibrillation appeared to be chronic. Gunner'S Mate M added apixaban for cardioembolic prophylaxis. Plavix was stopped. Per portable machine cutter, low-dose of aspirin along with apixaban was permissible. The patient was diuresed. Renal parameters, electrolytes, intake and output were closely monitored. Noted increase in creatinine. Diuretic stopped. After diuretic stopped, creatinine down to 1.7 as initial. Serial troponin x2 were negative. Pro-BNP without much change. Echocardiogram revealed ejection fraction of 55% to 60%, right ventricular systolic pressure of 19 and mitral regurgitation. Medical management of congestive heart failure was done with beta-yovani, no diuretic for now and no ALLYSON inhibitor for now, given increased creatinine and low blood pressure. Blood sugar was managed with sliding scale of insulin. Blood pressure was stable with current regimen. The patient was stable for transfer to the snf facility for short-term rehabilitation. DISCHARGE DIAGNOSES: 1. Acute on chronic diastolic congestive heart failure. 2. Pulmonary edema. 3. Rheumatic heart disease. 4. Acute renal failure on chronic kidney disease ( post diuresis). 5. Hypertensive heart disease. 6. Chronic atrial fibrillation with rapid ventricular response, resolved. 7. Diabetes mellitus type 2. 8. Coronary artery disease with history of coronary artery bypass graft. DISCHARGE MEDICATIONS: See medication reconciliation list. Discharge Instruction: The patient was discharged to snf facility. FOLLOWUP: Follow up with medical doctor at the facility. Lele Kellogg M.D. I have been assigned to dictate discharge summary on this account and I was not involved in the patient's management. Alva ParksMontefiore Nyack HospitalVíctor N.PGail DR: KADEN JOB#: [id number] CC: AUDRA
== END 2017-06-11 11:15 | DRG 291 ==
LOC: EDBD 19:41 → EMR 22:15 → 2E 22:16 → EDBEDREQ 22:36
DX: I13.0 Hypertensive heart and chronic kidney disease with heart failure and stage 1 through stage 4 chronic kidney disease, or unspecified chronic kidney disease (principal); I50.33 Acute on chronic diastolic (congestive) heart failure; N17.9 Acute kidney failure, unspecified; R06.89 Other abnormalities of breathing; E11.22 Type 2 diabetes mellitus with diabetic chronic kidney disease; I25.5 Ischemic cardiomyopathy; I25.10 Atherosclerotic heart disease of native coronary artery without angina pectoris; Z95.1 Presence of aortocoronary bypass graft; N18.9 Chronic kidney disease, unspecified; I34.0 Nonrheumatic mitral (valve) insufficiency; I09.9 Rheumatic heart disease, unspecified; I48.2 Chronic atrial fibrillation
CPT/HCPCS: 36415; 71010; 71020; 80048; 80053; 80061; 81003; 82550; 82553; 83735; 83880; 84443; 84484; 85025; 93005; 93306; 93970; 99285

== ENCOUNTER 2017-06-27 23:13 | Inpatient (IN) | payer MEDICARE, MEDICAID ==
[~2017-06-27] VITALS: Ht 180.3 cm; Wt 113.9 kg
[~2017-06-27 23:13] MED LIST: ACETAMINOPHEN-1 EAC1 ORAL; ALPRAZOLAM1 M2 ORAL; ALPRAZOLAM1 MG ORAL; ASPIRIN81 MG ORAL; ATORVASTATIN CA10 MG ORAL; ATORVASTATIN CA40 MG ORAL; ELIQUIS5 MG PO; METOPROLOL TAR100 M1 ORAL; METOPROLOL TART50 MG ORAL; PLAVIX75 MG ORAL; VITAMIN D250000 UNI1 ORAL; XANAX1 MG ORAL
[2017-06-27 23:15] VITALS: BP 120/87
[2017-06-27] MEDS ORDERED: dilTIAZem HCl 25mg/5ml Inj IV ONE (23:15)
[2017-06-27 23:56] LABS: BASOPHILS % (AUTO) 1.4 % (0.0-2.0); LYMPHOCYTES % (AUTO) 26.7 % (20.0-45.0); MEAN CORPUSCULAR HEMOGLOBIN 32.7 PG (27.0-31.0); MEAN CORPUSCULAR HGB CONC 32.6 G/DL (32.0-36.0); MEAN CORPUSCULAR VOLUME 100 FL (80-99); MEAN PLATELET VOLUME 8.4 FL (6.5-10.1); MONOCYTES % (AUTO) 8.1 % (1.0-10.0); NEUTROPHILS % (AUTO) 62.8 % (45.0-75.0); PLATELET COUNT 201 K/UL (150-450); RED BLOOD COUNT 4.29 M/UL (4.70-6.10); RED CELL DISTRIBUTION WIDTH 14.2 % (11.6-14.8); WHITE BLOOD COUNT 7.9 K/UL (4.8-10.8)
[2017-06-28] VITALS (33 sets, daily range): BP systolic 80–155; BP diastolic 47–108
[2017-06-28] LABS: APPEARANCE,URINE SLIGHTLY CLOUDY; KETONES,URINE NEGATIVE (NEGATIVE); LEUKOCYTE ESTERASE ,URINE NEGATIVE (NEGATIVE); NITRITE,URINE NEGATIVE (NEGATIVE); PH,URINE 5 (4.5-8.0); PROTEIN,URINE 3+ (NEGATIVE); UROBILINOGEN,URINE NORMAL MG/DL (0.0-1.0)
[2017-06-28 00:02] LABS: INR 1.1 (0.9-1.1); PROTHROMBIN TIME 11.7 SEC (9.30-11.50)
[2017-06-28 00:08] LABS: TROPONIN I < 0.30 ng/mL (<=0.30)
[2017-06-28 00:11] LABS: ALANINE AMINOTRANSFERASE 22 U/L (3-41); ALBUMIN/GLOBULIN RATIO 1.3 (1.0-2.7); ANION GAP 8 (5-15); ASPARTATE AMINO TRANSFERASE 21 U/L (5-40); CARBON DIOXIDE 33 mEQ/L (20-30); CHLORIDE 103 mEQ/L (98-107); CREATININE 1.9 mg/dL (0.7-1.2); HEMOLYSIS 13; POTASSIUM 4.8 mEQ/L (3.4-4.9); SODIUM 144 mEQ/L (135-145); TOTAL PROTEIN 6.5 g/dL (6.6-8.7)
[2017-06-28 00:17] LABS: BACTERIA,URINE FEW /HPF; SQUAMOUS EPITHELIAL CELL,UR OCCASIONAL /LPF (NONE/OCC); WBC,URINE 0-2 /HPF (0 - 0)
[2017-06-28 00:19] LABS: FINE GRANULAR CASTS,URINE 0-2 /LPF; MUCUS,URINE MODERATE /LPF (NONE/OCC)
[2017-06-28 00:21] LABS: CKMB 5.1 ng/mL (< 6.7)
[2017-06-28] MEDS ORDERED: dilTIAZem HCl 25mg/5ml Inj IV ONE ×5 (02:00→05:00)
[2017-06-28] MEDS ORDERED: dilTIAZem HCl 125mg/25ml Inj IV ONE ×3 (02:30→04:45)
--- NOTE | 2017-06-28 04:10 | Emergency Room Report ---
History of Present Illness General Chief Complaint: Dyspnea/Respdistress Source: Patient Present Illness HPI Is a 76-year-old male with a history of atrial fibrillation and flutter. Also history of CHF. He's not taking Lasix at the long-term. He presents with chief complaint of shortness of breath going on for one day. Worse with exertion. Decreased oxygenation. No fever chills been no nausea no vomiting. No chest pain. Allergies: Coded Allergies: No Known Allergies (Unverified , 06/07/17) Patient History Past Medical History: see triage record, old chart reviewed, HTN, CHF, AFib Past Surgical History: other Pertinent Family History: none Social History: Denies: smoking Immunizations: other Reviewed Nursing Documentation: PMH: Agreed, PSxH: Agreed Nursing Documentation-PMH Hx Cardiac Problems: Yes - Heart Failure, A-Fib, Aortocoronary Bypass Graft, Hx Hypertension: Yes Hx Cancer: No Hx Gastrointestinal Problems: No Hx Neurological Problems: No Review of Systems Eye: Denies: eye pain, blurred vision ENT: Denies: ear pain, nose congestion, throat swelling Respiratory: Reports: shortness of breath, Denies: cough Cardiovascular: Denies: chest pain, palpitations Gastrointestinal: Denies: abdominal pain, diarrhea, nausea, vomiting Musculoskeletal: Denies: back pain, joint pain Skin: Denies: rash Neurological: Denies: headache, numbness Endocrine: Denies: increased thirst, increased urine Hematologic/Lymphatic: Denies: easy bruising All Other Systems: negative except mentioned in HPI Physical Exam Vital Signs Date Time Temp Pulse Resp B/P (MAP) Pulse Ox O2 Delivery O2 Flow Rate FiO2 06/27/17 22:54 97.5 141 34 117/86 92 Nasal Cannula 2.0 vitals with tachycardia and hypoxia Sp02 EP Interpretation: abnormal General Appearance: mild distress Head: normocephalic, atraumatic Eyes: bilateral eye PERRL, bilateral eye EOMI ENT: hearing grossly normal, normal pharynx Neck: full range of motion, supple, no meningismus Respiratory: chest non-tender, decreased breath sounds, rales Cardiovascular #1: no murmur, tachycardia, irregularly irregular Gastrointestinal: normal bowel sounds, non tender, no mass, no organomegaly, no bruit, non-distended Musculoskeletal: back normal, normal range of motion, swelling - 1+ pitting edema Neurologic: alert Psychiatric: mood/affect normal Skin: warm/dry Procedures Critical Care Time Critical Care Time Critical care is mandated in this patient who presented with rapid A. fib and CHF. Patient require my urgent intervention to attenuate the risks of metabolic collapse which may lead to cardiovascular collapse and . Critical care time is 35 minutes excluding any reportable procedure. Critical care time included evaluation, multiple reevaluation, looking at old charts, interpreting laboratory and diagnostic data, discussing case with patient and family and consultants, and charting. Medical Decision Making Diagnostic Impression: Primary Impression: CHF (congestive heart failure) Qualified Codes: I50.9 - Heart failure, unspecified Additional Impressions: Rapid atrial fibrillation Chronic kidney disease (CKD) Qualified Codes: N18.9 - Chronic kidney disease, unspecified Proteinuria Qualified Codes: R80.9 - Proteinuria, unspecified ER Course Patient presents with rapid A. fib and CHF. Rate controlled with Cardizem. No evidence of pulmonary edema. Patient be admitted for further workup and diuresis. Laboratory Tests Test 06/27/17 23:20 White Blood Count 7.9 K/UL (4.8-10.8) Red Blood Count 4.29 M/UL (4.70-6.10) L Hemoglobin 14.0 G/DL (14.2-18.0) L Hematocrit 43.1 % (42.0-52.0) Mean Corpuscular Volume 100 FL (80-99) H Mean Corpuscular Hemoglobin 32.7 PG (27.0-31.0) H Mean Corpuscular Hemoglobin Concent 32.6 G/DL (32.0-36.0) Red Cell Distribution Width 14.2 % (11.6-14.8) Platelet Count 201 K/UL (150-450) Mean Platelet Volume 8.4 FL (6.5-10.1) Neutrophils (%) (Auto) 62.8 % (45.0-75.0) Lymphocytes (%) (Auto) 26.7 % (20.0-45.0) Monocytes (%) (Auto) 8.1 % (1.0-10.0) Eosinophils (%) (Auto) 1.0 % (0.0-3.0) Basophils (%) (Auto) 1.4 % (0.0-2.0) Prothrombin Time 11.7 SEC (9.30-11.50) H Prothromb Time International Ratio 1.1 (0.9-1.1) Activated Partial Thromboplast Time 28 SEC (23-33) Urine Color Yellow Urine Appearance Slightly cloudy Urine pH 5 (4.5-8.0) Urine Specific Lissie 1.025 (1.005-1.035) Urine Protein 3+ (NEGATIVE) H Urine Glucose (UA) Negative (NEGATIVE) Urine Ketones Negative (NEGATIVE) Urine Occult Blood 1+ (NEGATIVE) H Urine Nitrite Negative (NEGATIVE) Urine Bilirubin Negative (NEGATIVE) Urine Urobilinogen Normal MG/DL (0.0-1.0) Urine Leukocyte Esterase Negative (NEGATIVE) Urine RBC 2-4 /HPF (0 - 0) H Urine WBC 0-2 /HPF (0 - 0) Urine Squamous Epithelial Cells Occasional /LPF Urine Bacteria Few /HPF (NONE) Urine Hyaline Casts 5-10 /LPF (NONE) H Urine Fine Granular Casts 0-2 /LPF (NONE) H Urine Mucus Moderate /LPF (NONE/OCC) H Sodium Level 144 mEQ/L (135-145) Potassium Level 4.8 mEQ/L (3.4-4.9) Chloride Level 103 mEQ/L (98-107) Carbon Dioxide Level 33 mEQ/L (20-30) H Anion Gap 8 (5-15) Blood Urea Nitrogen 30 mg/dL (7-23) H Creatinine 1.9 mg/dL (0.7-1.2) H Estimat Glomerular Filtration Rate mL/min (>60) Glucose Level 124 mg/dL (74-106) H Calcium Level 9.0 mg/dL (8.6-10.2) Total Bilirubin 0.7 mg/dL (0.0-1.2) Aspartate Amino Transf (AST/SGOT) 21 U/L (5-40) Alanine Aminotransferase (ALT/SGPT) 22 U/L (3-41) Alkaline Phosphatase 36 U/L (40-129) L Total Creatine Kinase 246 U/L (38-174) H Creatine Kinase MB 5.1 ng/mL (< 6.7) Creatine Kinase MB Relative Index 2.0 Troponin I < 0.30 ng/mL (<=0.30) Pro-B-Type Natriuretic Peptide 1984 pg/mL (0-450) H Total Protein 6.5 g/dL (6.6-8.7) L Albumin 3.7 g/dL (3.5-5.2) Globulin 2.8 g/dL Albumin/Globulin Ratio 1.3 (1.0-2.7) Lab Results Impression labs an elevated BNP EKG Diagnostic Results Rate: tachycardiac Rhythm: other - AFib ST Segments: other - Nonspecific ST changes PA Scribe Text EKG #2: Atrial flutter with 4-[address] changes Rhythm Strip Diag. Results Rhythm Strip Time: 04:08 EP Interpretation: yes Rate: 95 Rhythm: no PVC's, no ectopy, other - A. fib Chest X-Ray Diagnostic Results Chest X-Ray Diagnostic Results : Chest X-Ray Ordered: Yes # of Views/Limited/Complete: 1 View Indication: Shortness of Breath EP Interpretation: Yes Interpretation: no consolidation, no pneumothorax, other - Cardiomegaly with CHF Impression: Other - CHF Electronically Signed by: Electronically signed by Kemar Miller MD Last Vital Signs Date Time Temp Pulse Resp B/P (MAP) Pulse Ox O2 Delivery O2 Flow Rate FiO2 06/28/17 03:00 97.7 95 37 125/72 92 Nasal Cannula 3.0 Status: improved Disposition: ADMITTED INPATIENT Condition: Serious Referrals: SHIMON MOHR (PCP) KEMAR MILLER M.D. Jun 28, 2017 04:10
--- NOTE | 2017-06-28 08:27 | History & Physical ---
History and Physical History & Physicial 76-year-old male presented to the ER with increasing rapid aflutter. Patient with history of PAF in the past. Heart rate was noted to be in the 130-140 and not improved. Patient had prior history of triple-vessel bypass disease. He denies any prior history of congestive heart failure. He has been under the care of cardiology in the past. The patient has been getting lasix in the SNF for increasing edema. He denies chest pain or radiation of pain. He denies cough or sputum. He admits to wheeze and has been getting nebs at the facility. Patient admits to anxiety PMH 1. Acute on chronic diastolic congestive heart failure. 2. Pulmonary edema. 3. Rheumatic heart disease. 4. Acute renal failure on chronic kidney disease ( post diuresis). 5. Hypertensive heart disease. 6. Chronic atrial fibrillation with rapid ventricular response, resolved. 7. Diabetes mellitus type 2. 8. Coronary artery disease with history of coronary artery bypass graft. SOCIAL HISTORY [facility]; nonsmoker; previously at [email or web address] [facility] and ALLERGIES reviewed ROS all 10 points reviewed noted anxiety with cough and wheeze; leg edema PHYSICAL EXAM WDWN NAD reduced breath sounds bilaterally without rhonchi or wheeze [id number] tachy without MRG NABS nontender no HSM no CC 2+ edema nonfocal Laboratory Tests Test 06/27/17 23:20 White Blood Count 7.9 K/UL (4.8-10.8) Red Blood Count 4.29 M/UL (4.70-6.10) L Hemoglobin 14.0 G/DL (14.2-18.0) L Hematocrit 43.1 % (42.0-52.0) Mean Corpuscular Volume 100 FL (80-99) H Mean Corpuscular Hemoglobin 32.7 PG (27.0-31.0) H Mean Corpuscular Hemoglobin Concent 32.6 G/DL (32.0-36.0) Red Cell Distribution Width 14.2 % (11.6-14.8) Platelet Count 201 K/UL (150-450) Mean Platelet Volume 8.4 FL (6.5-10.1) Neutrophils (%) (Auto) 62.8 % (45.0-75.0) Lymphocytes (%) (Auto) 26.7 % (20.0-45.0) Monocytes (%) (Auto) 8.1 % (1.0-10.0) Eosinophils (%) (Auto) 1.0 % (0.0-3.0) Basophils (%) (Auto) 1.4 % (0.0-2.0) Prothrombin Time 11.7 SEC (9.30-11.50) H Prothromb Time International Ratio 1.1 (0.9-1.1) Activated Partial Thromboplast Time 28 SEC (23-33) Urine Color Yellow Urine Appearance Slightly cloudy Urine pH 5 (4.5-8.0) Urine Specific [place] 1.025 (1.005-1.035) Urine Protein 3+ (NEGATIVE) H Urine Glucose (UA) Negative (NEGATIVE) Urine Ketones Negative (NEGATIVE) Urine Occult Blood 1+ (NEGATIVE) H Urine Nitrite Negative (NEGATIVE) Urine Bilirubin Negative (NEGATIVE) Urine Urobilinogen Normal MG/DL (0.0-1.0) Urine Leukocyte Esterase Negative (NEGATIVE) Urine RBC 2-4 /HPF (0 - 0) H Urine WBC 0-2 /HPF (0 - 0) Urine Squamous Epithelial Cells Occasional /LPF Urine Bacteria Few /HPF (NONE) Urine Hyaline Casts 5-10 /LPF (NONE) H Urine Fine Granular Casts 0-2 /LPF (NONE) H Urine Mucus Moderate /LPF (NONE/OCC) H Sodium Level 144 mEQ/L (135-145) Potassium Level 4.8 mEQ/L (3.4-4.9) Chloride Level 103 mEQ/L (98-107) Carbon Dioxide Level 33 mEQ/L (20-30) H Anion Gap 8 (5-15) Blood Urea Nitrogen 30 mg/dL (7-23) H Creatinine 1.9 mg/dL (0.7-1.2) H Estimat Glomerular Filtration Rate mL/min (>60) Glucose Level 124 mg/dL (74-106) H Calcium Level 9.0 mg/dL (8.6-10.2) Total Bilirubin 0.7 mg/dL (0.0-1.2) Aspartate Amino Transf (AST/SGOT) 21 U/L (5-40) Alanine Aminotransferase (ALT/SGPT) 22 U/L (3-41) Alkaline Phosphatase 36 U/L (40-129) L Total Creatine Kinase 246 U/L (38-174) H Creatine Kinase MB 5.1 ng/mL (< 6.7) Creatine Kinase MB Relative Index 2.0 Troponin I < 0.30 ng/mL (<=0.30) Pro-B-Type Natriuretic Peptide 1984 pg/mL (0-450) H Total Protein 6.5 g/dL (6.6-8.7) L Albumin 3.7 g/dL (3.5-5.2) Globulin 2.8 g/dL Albumin/Globulin Ratio 1.3 (1.0-2.7) IMPRESSION aflutter/fib CAD CABG diabetes possible Asthma CRI leg edema PLAN ICU care cardizem drip cards evaluation anticoagulation lasix IV update daughter medications/laboratory data/nursing notes/ICU care reviewed in detail note reviewed and edited care discussed with RN and RT ICU time spent 55 minutes SHIMON MOHR Jun 28, 2017 08:27
[2017-06-28] MEDS: Aspirin Baby 81mg ORAL SCH (08:56)
[2017-06-28] MEDS: ALPRAZolam 0.5mg tab ORAL SCH ×2 (08:56→17:31)
[2017-06-28] MEDS: Eliquis 2.5mg tablet ORAL SCH ×2 (10:45→17:31)
--- NOTE | 2017-06-28 10:47 | Diagnostic Imaging Report ---
Indication: Dyspnea Comparison: 06/09/17 A single view chest radiograph was obtained. Findings: Mild interstitial edema suspected with cardiomegaly. There is right basilar atelectasis versus pneumonia. impression: Mild interstitial edema suspected. Possible right basal pneumonia versus atelectasis
[2017-06-28] MEDS: NovoLOG Insulin Flexpen SUBQ SCH ×3 (11:25→21:29)
[2017-06-28] MEDS ORDERED: Amiodarone 900 MG in D5W 500ml 482 ML IV SCH (14:00)
[2017-06-28 22:55] LABS: ABG PCO2 72.4 mmHg (35.0-45.0)
[2017-06-28 22:56] LABS: ABG ALLEN TEST POSITIVE
[2017-06-29] VITALS (39 sets, daily range): BP systolic 106–152; BP diastolic 57–94
--- NOTE | 2017-06-29 05:15 | Consultation ---
DATE OF CONSULTATION: 06/28/2017 CARDIOLOGY CONSULTATION CONSULTING PHYSICIAN: Derrick Burch M.D. REQUESTING PHYSICIAN: Lele Kellogg M.D. Reason For Consultation: Atrial fibrillation with rapid ventricular response. History Of Present Illness: This is a 76-year-old male. He has known history of paroxysmal atrial fibrillation and flutter in the setting of ischemic heart disease and prior CABG. He was hospitalized here several weeks ago with heart failure exacerbation and rapid atrial fibrillation. His medical regimen was optimized and he was [facility] in view of the functional decline. The patient returned to the hospital today with increasing shortness of breath and rapid atrial flutter. Heart rates up to 140 were noted in the emergency room. The patient was not complaining of chest pain but he did feel short of breath. He was anxious and noted to be wheezing. He denied any cough or sputum production. He has also had some leg swelling. Past Medical History: Rheumatic heart disease, coronary artery disease with CABG, paroxysmal atrial fibrillation, hypertensive heart disease, type 2 diabetes mellitus, and history of diastolic congestive heart failure. Medications: Medications prior to admission, reviewed and reconciled. ALLERGIES: Noted. FAMILY HISTORY: Noncontributory. Social History: Presently in a [facility] facility. Nonsmoker. Previous use of alcohol. No substance abuse. Review Of Systems: A 10-point review of systems performed. All systems negative. Pertinent data outlined above. PHYSICAL EXAMINATION: Vital Signs: Blood pressure ranging from 80/48 to 140/90, heart rate 138, respiratory rate 20, afebrile, and oxygen saturation 92% on 6 L nasal cannula. HEENT: Conjunctivae pink. Arcus senilis. Oropharynx clear. NECK: Supple. Jugular venous pressure elevated. LUNGS: With diminished breath sounds. Scattered rales. Cardiac: Irregularly irregular. Rapid rate. Normal S1 and S2. A 1/6 early systolic apical murmur. ABDOMEN: Soft and nontender. Mild ascites. EXTREMITIES: A 1 to 2+ bilateral pretibial edema. No tremor. NEUROLOGIC: Nonfocal. Laboratory And Diagnostic Data: White count 7.9 and hemoglobin 14. Urinalysis with no active sediment. Sodium 144, BUN 30, creatinine 1.9, potassium 4.8, and bicarbonate 33. Troponin negative. Pro-natriuretic peptide 1984. Chest x-ray reveals pulmonary venous congestion. EKG reveals atrial fibrillation with rapid ventricular response and nonspecific ST-T wave changes. IMPRESSION: 1. Paroxysmal atrial fibrillation now with rapid ventricular response. 2. Acute on chronic diastolic congestive heart failure. 3. Acute myocardial ischemia in the setting of ischemic heart disease and prior coronary artery bypass graft. 4. Hypertensive heart disease with labile blood pressure. PLAN: 1. ICU monitoring. 2. Start IV amiodarone loading. 3. Continue Cardizem for rate control and titrate. 4. Continue cardioembolic prophylaxis with apixaban. 5. Titration of antihypertensive. 6. Cautious diuresis. 7. Supplemental oxygen. 8. We will follow. Derrick Burch M.D. DR: GEORGES JOB#: [id number] CC:
[2017-06-29] MEDS: NovoLOG Insulin Flexpen SUBQ SCH ×4 (06:19→21:15)
[2017-06-29 06:25] LABS: BASOPHILS % (AUTO) 1.2 % (0.0-2.0); EOSINOPHILS % (AUTO) 0.8 % (0.0-3.0); LYMPHOCYTES % (AUTO) 21.3 % (20.0-45.0); MEAN CORPUSCULAR HEMOGLOBIN 32.4 PG (27.0-31.0); MEAN CORPUSCULAR HGB CONC 32.2 G/DL (32.0-36.0); MEAN CORPUSCULAR VOLUME 101 FL (80-99); MEAN PLATELET VOLUME 7.8 FL (6.5-10.1); MONOCYTES % (AUTO) 10.2 % (1.0-10.0); NEUTROPHILS % (AUTO) 66.5 % (45.0-75.0); PLATELET COUNT 170 K/UL (150-450); RED BLOOD COUNT 4.18 M/UL (4.70-6.10); RED CELL DISTRIBUTION WIDTH 14.1 % (11.6-14.8); WHITE BLOOD COUNT 8.1 K/UL (4.8-10.8)
[2017-06-29 06:47] LABS: ANION GAP 11 (5-15); CALCIUM 9.4 mg/dL (8.6-10.2); CARBON DIOXIDE 35 mEQ/L (20-30); CHLORIDE 97 mEQ/L (98-107); CREATININE 2.1 mg/dL (0.7-1.2); HEMOLYSIS 5; POTASSIUM 4.7 mEQ/L (3.4-4.9); SODIUM 143 mEQ/L (135-145)
--- NOTE | 2017-06-29 08:36 | Critical Care Progress Note ---
Assessment/Plan Assessment/Plan IMPRESSION aflutter/fib CAD CABG diabetes possible Asthma CRI leg edema pulmonary edema sleep apnea acute on chronic CO2 retention PLAN ICU care cardizem drip amio drip cards evaluation appreciated anticoagulation lasix IV- repeat BIPAP at HS and PRN check ABG monitor in ICU until off drip update daughter medications/laboratory data/nursing notes/ICU care reviewed in detail note reviewed and edited care discussed with RN and RT ICU time spent 35 minutes Critical Care - Subjective Interval Events: desaturations while asleep likely with sleep apnea much improved and comfortable acid base noted ROS Limited/Unobtainable: Yes EKG Rhythm: Atrial Flutter I&O: Intake and Output 06/29/17 06/30/17 19:00 07:00 Output Total 45 ml Balance -45 ml Output Urine Total 45 ml Critical Care - Objective Last 24 Hour Vital Signs Date Time Temp Pulse Resp B/P (MAP) Pulse Ox O2 Delivery O2 Flow Rate FiO2 06/29/17 08:00 79 06/29/17 08:00 97.6 79 29 106/74 100 Bi-pap 50.0 06/29/17 07:30 79 30 128/65 99 Bi-pap 50.0 06/29/17 07:18 99 Bi-pap 06/29/17 07:18 Bi-pap 06/29/17 07:14 76 34 99 Facial 50 06/29/17 07:00 78 32 126/75 99 Bi-pap 50.0 06/29/17 06:30 73 29 145/74 98 Bi-pap 60.0 06/29/17 06:00 82 29 128/79 98 Bi-pap 60.0 06/29/17 05:30 84 29 128/72 98 Bi-pap 60.0 06/29/17 05:00 74 31 132/69 97 Bi-pap 60.0 06/29/17 04:36 77 44 96 Facial 50 06/29/17 04:30 74 31 119/75 96 Bi-pap 60.0 06/29/17 04:00 98.2 72 26 141/94 99 Bi-pap 60.0 06/29/17 04:00 78 06/29/17 03:30 78 26 120/81 99 Bi-pap 60.0 06/29/17 03:00 81 26 134/81 99 Bi-pap 60.0 06/29/17 02:51 88 33 98 Facial 50 06/29/17 02:30 80 26 109/63 99 Bi-pap 60.0 06/29/17 02:00 79 30 122/67 99 Bi-pap 60.0 06/29/17 01:30 85 30 112/71 99 Bi-pap 60.0 06/29/17 01:00 85 30 143/80 98 Bi-pap 60.0 06/29/17 00:55 96 35 99 Facial 60 06/29/17 00:30 86 27 120/71 100 Bi-pap 70.0 06/29/17 00:00 98.0 85 34 120/71 98 Bi-pap 70.0 06/28/17 23:30 88 31 145/103 100 Bi-pap 70.0 06/28/17 23:29 94 30 100 Facial 70 06/28/17 23:00 90 29 130/98 93 Bi-pap 40.0 06/28/17 22:30 90 29 144/98 93 Venturi Mask 55 06/28/17 22:00 98 29 129/85 93 Venturi Mask 55 06/28/17 21:57 71 38 92 Facial 40 06/28/17 21:56 77 39 Bi-pap 40 06/28/17 21:30 85 33 145/83 93 Venturi Mask 55 06/28/17 21:28 85 155/85 06/28/17 21:00 97 35 155/85 95 Venturi Mask 55 06/28/17 20:30 85 35 143/75 95 Non-Rebreather 06/28/17 20:00 138 06/28/17 20:00 98.2 81 19 120/72 92 Non-Rebreather 06/28/17 19:27 92 Non-Rebreather 14.0 100 06/28/17 19:27 Non-Rebreather 14.0 100 06/28/17 19:00 102 19 115/72 92 Non-Rebreather 100 06/28/17 18:30 97 19 136/87 92 Nasal Cannula 6.0 06/28/17 18:00 120 20 126/74 92 Nasal Cannula 6.0 06/28/17 17:30 83 20 134/55 92 Nasal Cannula 6.0 06/28/17 17:00 83 20 129/73 94 Nasal Cannula 6.0 06/28/17 16:30 64 19 124/70 94 Nasal Cannula 6.0 06/28/17 16:00 138 06/28/17 16:00 98.1 78 20 129/72 98 Nasal Cannula 6.0 06/28/17 15:30 63 19 135/68 94 Nasal Cannula 6.0 06/28/17 15:00 67 19 112/75 94 Nasal Cannula 6.0 06/28/17 14:30 110 20 121/82 94 Nasal Cannula 6.0 06/28/17 14:00 110 20 122/82 94 Nasal Cannula 6.0 06/28/17 13:30 111 20 109/90 92 Nasal Cannula 6.0 06/28/17 12:30 119 20 110/74 92 Nasal Cannula 6.0 06/28/17 12:00 138 06/28/17 12:00 98.0 128 20 107/56 98 Nasal Cannula 6.0 06/28/17 11:30 138 20 140/90 92 Nasal Cannula 6.0 06/28/17 11:00 137 20 80/48 98 Nasal Cannula 6.0 06/28/17 10:30 134 20 105/73 98 Nasal Cannula 6.0 06/28/17 10:00 138 20 98/68 98 Nasal Cannula 6.0 06/28/17 09:42 141 135/95 06/28/17 09:00 141 20 130/70 98 Nasal Cannula 6.0 06/28/17 08:56 143 129/89 Labs: Labs Test 06/27/17 23:20 06/28/17 22:52 06/29/17 05:45 White Blood Count 7.9 K/UL (4.8-10.8) 8.1 K/UL (4.8-10.8) Red Blood Count 4.29 M/UL (4.70-6.10) 4.18 M/UL (4.70-6.10) Hemoglobin 14.0 G/DL (14.2-18.0) 13.6 G/DL (14.2-18.0) Hematocrit 43.1 % (42.0-52.0) 42.1 % (42.0-52.0) Mean Corpuscular Volume 100 FL (80-99) 101 FL (80-99) Mean Corpuscular Hemoglobin 32.7 PG (27.0-31.0) 32.4 PG (27.0-31.0) Mean Corpuscular Hemoglobin Concent 32.6 G/DL (32.0-36.0) 32.2 G/DL (32.0-36.0) Red Cell Distribution Width 14.2 % (11.6-14.8) 14.1 % (11.6-14.8) Platelet Count 201 K/UL (150-450) 170 K/UL (150-450) Mean Platelet Volume 8.4 FL (6.5-10.1) 7.8 FL (6.5-10.1) Neutrophils (%) (Auto) 62.8 % (45.0-75.0) 66.5 % (45.0-75.0) Lymphocytes (%) (Auto) 26.7 % (20.0-45.0) 21.3 % (20.0-45.0) Monocytes (%) (Auto) 8.1 % (1.0-10.0) 10.2 % (1.0-10.0) Eosinophils (%) (Auto) 1.0 % (0.0-3.0) 0.8 % (0.0-3.0) Basophils (%) (Auto) 1.4 % (0.0-2.0) 1.2 % (0.0-2.0) Prothrombin Time 11.7 SEC (9.30-11.50) Prothromb Time International Ratio 1.1 (0.9-1.1) Activated Partial Thromboplast Time 28 SEC (23-33) Urine Color Yellow Urine Appearance Slightly cloudy Urine pH 5 (4.5-8.0) Urine Specific [place] 1.025 (1.005-1.035) Urine Protein 3+ (NEGATIVE) Urine Glucose (UA) Negative (NEGATIVE) Urine Ketones Negative (NEGATIVE) Urine Occult Blood 1+ (NEGATIVE) Urine Nitrite Negative (NEGATIVE) Urine Bilirubin Negative (NEGATIVE) Urine Urobilinogen Normal MG/DL (0.0-1.0) Urine Leukocyte Esterase Negative (NEGATIVE) Urine RBC 2-4 /HPF (0 - 0) Urine WBC 0-2 /HPF (0 - 0) Urine Squamous Epithelial Cells Occasional /LPF Urine Bacteria Few /HPF (NONE) Urine Hyaline Casts 5-10 /LPF (NONE) Urine Fine Granular Casts 0-2 /LPF (NONE) Urine Mucus Moderate /LPF (NONE/OCC) Sodium Level 144 mEQ/L (135-145) 143 mEQ/L (135-145) Potassium Level 4.8 mEQ/L (3.4-4.9) 4.7 mEQ/L (3.4-4.9) Chloride Level 103 mEQ/L (98-107) 97 mEQ/L (98-107) Carbon Dioxide Level 33 mEQ/L (20-30) 35 mEQ/L (20-30) Anion Gap 8 (5-15) 11 (5-15) Blood Urea Nitrogen 30 mg/dL (7-23) 32 mg/dL (7-23) Creatinine 1.9 mg/dL (0.7-1.2) 2.1 mg/dL (0.7-1.2) Estimat Glomerular Filtration Rate mL/min (>60) mL/min (>60) Glucose Level 124 mg/dL (74-106) 111 mg/dL (74-106) Calcium Level 9.0 mg/dL (8.6-10.2) 9.4 mg/dL (8.6-10.2) Total Bilirubin 0.7 mg/dL (0.0-1.2) Aspartate Amino Transf (AST/SGOT) 21 U/L (5-40) Alanine Aminotransferase (ALT/SGPT) 22 U/L (3-41) Alkaline Phosphatase 36 U/L (40-129) Total Creatine Kinase 246 U/L (38-174) Creatine Kinase MB 5.1 ng/mL (< 6.7) Creatine Kinase MB Relative Index 2.0 Troponin I < 0.30 ng/mL (<=0.30) Pro-B-Type Natriuretic Peptide 1984 pg/mL (0-450) 1275 pg/mL (0-450) Total Protein 6.5 g/dL (6.6-8.7) Albumin 3.7 g/dL (3.5-5.2) Globulin 2.8 g/dL Albumin/Globulin Ratio 1.3 (1.0-2.7) Arterial Blood pH 7.302 (7.350-7.450) Arterial Blood Partial Pressure CO2 72.4 mmHg (35.0-45.0) Arterial Blood Partial Pressure O2 62.2 mmHg (75.0-100.0) Arterial Blood HCO3 35.0 mmol/L (22.0-26.0) Arterial Blood Oxygen Saturation 90.1 % (92.0-98.0) Arterial Blood Base Excess 6.0 John Test Positive Objective: WDWN NAD reduced breath sounds bilaterally without rhonchi or wheeze [id number] without MRG; rate controlled NABS nontender no HSM no CC 1+ edema nonfocal Accucheck: 104 SHIMON MOHR Jun 29, 2017 08:36
[2017-06-29] MEDS: ALPRAZolam 0.5mg tab ORAL SCH ×2 (09:00→17:34)
[2017-06-29 09:27] LABS: ABG ALLEN TEST POSITIVE; ABG BASE EXCESS 10.3; ABG PCO2 73.2 mmHg (35.0-45.0)
[2017-06-29] MEDS: Eliquis 2.5mg tablet ORAL SCH ×2 (09:30→17:34)
[2017-06-29] MEDS: Aspirin Baby 81mg ORAL SCH (09:30)
[2017-06-29] MEDS: Amiodarone 200mg tab ORAL SCH ×2 (13:58→21:13)
[2017-06-30] VITALS (19 sets, daily range): BP systolic 107–157; BP diastolic 52–88
--- NOTE | 2017-06-30 03:15 | Progress Note ---
DATE: 06/29/2017 CARDIOLOGY PROGRESS NOTE Subjective: The patient still has shortness of breath and has hypoxia and hypopnea while sleeping. BiPAP support was initiated with good response. The patient remains on IV drip of amiodarone loading as well as diltiazem IV and his oral beta-yovani. Heart rates have now been decreased to the range of 60. The patient continues to receive IV diuretics and his diuresis has improved. OBJECTIVE: Vital Signs: Blood pressure 106/74, pulse 79, respirations 29, and afebrile. NECK: Supple. Jugular venous pressure elevated. LUNGS: With diminished breath sounds and scattered rales. Cardiac: Irregularly irregular. Normal S1 and S2. A 1/6 systolic murmur at base. ABDOMEN: Soft and nontender. EXTREMITIES: With trace dependent edema. Laboratory And Diagnostic Data: Sodium 143, potassium 4.7, bicarbonate 35, BUN 32, and creatinine 2.1. Pro-natriuretic peptide decreased to 1275. ABG 7.34, 73, and 83. White count 8.1 and hemoglobin 13.6. IMPRESSION: 1. Paroxysmal atrial fibrillation with rapid ventricular response, now rate controlled. 2. Acute on chronic respiratory acidosis, improving. 3. Hypoventilation syndrome and possible sleep apnea. 4. Acute on chronic diastolic congestive heart failure. 5. Ischemic cardiomyopathy with stable angina. 6. Degenerative valve disease with mitral regurgitation and pulmonary hypertension. PLAN: 1. BiPAP support. 2. Continue diuresis with intravenous loop diuretic. 3. Monitor electrolytes and acid-base parameters. 4. Discontinue IV Cardizem. 5. Transition from IV amiodarone to oral dosing. 6. Titrate beta-yovani. 7. Remains critical and guarded. 8. Continue ICU level of care. Derrick Burch M.D. DR: GEORGES JOB#: [id number] CC:
[2017-06-30] MEDS: NovoLOG Insulin Flexpen SUBQ SCH ×2 (06:20→11:39)
[2017-06-30 07:07] LABS: ANION GAP 8 (5-15); CALCIUM 9.5 mg/dL (8.6-10.2); CARBON DIOXIDE 38 mEQ/L (20-30); CHLORIDE 100 mEQ/L (98-107); HEMOLYSIS 6; POTASSIUM 4.8 mEQ/L (3.4-4.9); SODIUM 146 mEQ/L (135-145)
[2017-06-30] MEDS: ALPRAZolam 0.5mg tab ORAL SCH ×2 (09:20→18:07)
[2017-06-30] MEDS: Amiodarone 200mg tab ORAL SCH ×2 (09:20→23:00)
[2017-06-30] MEDS: Aspirin Baby 81mg ORAL SCH (09:21)
[2017-06-30] MEDS: Eliquis 2.5mg tablet ORAL SCH ×2 (09:21→18:09)
--- NOTE | 2017-06-30 17:01 | Critical Care Progress Note ---
Assessment/Plan Assessment/Plan IMPRESSION aflutter/fib CAD CABG diabetes possible Asthma CRI leg edema pulmonary edema sleep apnea acute on chronic CO2 retention PLAN ICU care- reviewed cardizem drip- off amio drip- changed to PO cards evaluation appreciated anticoagulation per cards lasix IV- as needed BIPAP at HS and PRN check ABG transfer to tele update daughter medications/laboratory data/nursing notes/ICU care reviewed in detail note reviewed and edited care discussed with RN and RT ICU time spent 35 minutes Critical Care - Subjective Interval Events: improved now off drips alert updated daughter EKG Rhythm: Sinus Rhythm I&O: Intake and Output 06/30/17 07/01/17 19:00 07:00 Intake Total 130 ml Output Total 1180 ml Balance -1050 ml Intake Oral 130 ml Output Urine Total 1180 ml Critical Care - Objective Last 24 Hour Vital Signs Date Time Temp Pulse Resp B/P (MAP) Pulse Ox O2 Delivery O2 Flow Rate FiO2 06/30/17 15:00 69 25 138/77 94 Nasal Cannula 3.0 06/30/17 14:00 63 27 107/88 95 Nasal Cannula 3.0 06/30/17 13:00 62 27 137/65 95 Nasal Cannula 3.0 06/30/17 12:00 98.5 66 28 137/85 94 Nasal Cannula 3.0 06/30/17 12:00 65 06/30/17 11:00 59 30 119/69 93 Nasal Cannula 3.0 06/30/17 10:00 62 28 152/60 94 Nasal Cannula 3.0 06/30/17 09:30 66 20 95 3.0 32 06/30/17 09:23 70 142/64 06/30/17 09:00 65 24 142/64 94 Nasal Cannula 3.0 06/30/17 08:00 67 06/30/17 08:00 67 27 148/71 93 Nasal Cannula 3.0 06/30/17 07:05 Nasal Cannula 3.0 32 06/30/17 07:05 63 22 94 3.0 32 06/30/17 07:05 95 Nasal Cannula 3.0 32 06/30/17 07:00 98.1 63 28 141/66 95 Nasal Cannula 3.0 06/30/17 06:00 65 27 157/77 93 Nasal Cannula 3.0 06/30/17 05:02 63 22 94 3.0 32 06/30/17 05:00 66 27 133/52 94 Nasal Cannula 3.0 06/30/17 04:00 98.4 61 27 131/67 94 Bi-pap 50.0 06/30/17 04:00 64 06/30/17 04:00 50 06/30/17 03:00 61 27 125/56 93 Bi-pap 50.0 06/30/17 02:30 62 18 95 3.0 32 06/30/17 02:18 60 20 96 3.0 32 06/30/17 02:00 61 27 131/67 94 Bi-pap 50.0 06/30/17 01:00 60 27 117/84 99 Bi-pap 50.0 06/30/17 00:43 58 16 95 Facial 50 06/30/17 00:00 98.2 59 29 126/58 99 Bi-pap 50.0 06/30/17 00:00 59 06/29/17 23:15 64 27 99 Full Face 50 06/29/17 23:00 60 24 109/60 99 Bi-pap 50.0 06/29/17 22:00 61 26 152/68 100 Bi-pap 50.0 06/29/17 21:29 64 26 99 50 06/29/17 21:14 64 134/62 06/29/17 21:00 64 27 134/62 96 Bi-pap 50.0 06/29/17 20:00 98.0 67 27 134/57 95 Bi-pap 50.0 06/29/17 20:00 67 06/29/17 19:36 92 28 93 4.0 36 06/29/17 19:35 Nasal Cannula 4.0 36 06/29/17 19:34 93 Nasal Cannula 4.0 36 06/29/17 18:00 61 26 131/66 95 Bi-pap 50.0 Labs: Labs Test 06/27/17 23:20 06/28/17 22:52 06/29/17 05:45 06/29/17 09:17 White Blood Count 7.9 K/UL (4.8-10.8) 8.1 K/UL (4.8-10.8) Red Blood Count 4.29 M/UL (4.70-6.10) 4.18 M/UL (4.70-6.10) Hemoglobin 14.0 G/DL (14.2-18.0) 13.6 G/DL (14.2-18.0) Hematocrit 43.1 % (42.0-52.0) 42.1 % (42.0-52.0) Mean Corpuscular Volume 100 FL (80-99) 101 FL (80-99) Mean Corpuscular Hemoglobin 32.7 PG (27.0-31.0) 32.4 PG (27.0-31.0) Mean Corpuscular Hemoglobin Concent 32.6 G/DL (32.0-36.0) 32.2 G/DL (32.0-36.0) Red Cell Distribution Width 14.2 % (11.6-14.8) 14.1 % (11.6-14.8) Platelet Count 201 K/UL (150-450) 170 K/UL (150-450) Mean Platelet Volume 8.4 FL (6.5-10.1) 7.8 FL (6.5-10.1) Neutrophils (%) (Auto) 62.8 % (45.0-75.0) 66.5 % (45.0-75.0) Lymphocytes (%) (Auto) 26.7 % (20.0-45.0) 21.3 % (20.0-45.0) Monocytes (%) (Auto) 8.1 % (1.0-10.0) 10.2 % (1.0-10.0) Eosinophils (%) (Auto) 1.0 % (0.0-3.0) 0.8 % (0.0-3.0) Basophils (%) (Auto) 1.4 % (0.0-2.0) 1.2 % (0.0-2.0) Prothrombin Time 11.7 SEC (9.30-11.50) Prothromb Time International Ratio 1.1 (0.9-1.1) Activated Partial Thromboplast Time 28 SEC (23-33) Urine Color Yellow Urine Appearance Slightly cloudy Urine pH 5 (4.5-8.0) Urine Specific [place] 1.025 (1.005-1.035) Urine Protein 3+ (NEGATIVE) Urine Glucose (UA) Negative (NEGATIVE) Urine Ketones Negative (NEGATIVE) Urine Occult Blood 1+ (NEGATIVE) Urine Nitrite Negative (NEGATIVE) Urine Bilirubin Negative (NEGATIVE) Urine Urobilinogen Normal MG/DL (0.0-1.0) Urine Leukocyte Esterase Negative (NEGATIVE) Urine RBC 2-4 /HPF (0 - 0) Urine WBC 0-2 /HPF (0 - 0) Urine Squamous Epithelial Cells Occasional /LPF Urine Bacteria Few /HPF (NONE) Urine Hyaline Casts 5-10 /LPF (NONE) Urine Fine Granular Casts 0-2 /LPF (NONE) Urine Mucus Moderate /LPF (NONE/OCC) Sodium Level 144 mEQ/L (135-145) 143 mEQ/L (135-145) Potassium Level 4.8 mEQ/L (3.4-4.9) 4.7 mEQ/L (3.4-4.9) Chloride Level 103 mEQ/L (98-107) 97 mEQ/L (98-107) Carbon Dioxide Level 33 mEQ/L (20-30) 35 mEQ/L (20-30) Anion Gap 8 (5-15) 11 (5-15) Blood Urea Nitrogen 30 mg/dL (7-23) 32 mg/dL (7-23) Creatinine 1.9 mg/dL (0.7-1.2) 2.1 mg/dL (0.7-1.2) Estimat Glomerular Filtration Rate mL/min (>60) mL/min (>60) Glucose Level 124 mg/dL (74-106) 111 mg/dL (74-106) Calcium Level 9.0 mg/dL (8.6-10.2) 9.4 mg/dL (8.6-10.2) Total Bilirubin 0.7 mg/dL (0.0-1.2) Aspartate Amino Transf (AST/SGOT) 21 U/L (5-40) Alanine Aminotransferase (ALT/SGPT) 22 U/L (3-41) Alkaline Phosphatase 36 U/L (40-129) Total Creatine Kinase 246 U/L (38-174) Creatine Kinase MB 5.1 ng/mL (< 6.7) Creatine Kinase MB Relative Index 2.0 Troponin I < 0.30 ng/mL (<=0.30) Pro-B-Type Natriuretic Peptide 1984 pg/mL (0-450) 1275 pg/mL (0-450) Total Protein 6.5 g/dL (6.6-8.7) Albumin 3.7 g/dL (3.5-5.2) Globulin 2.8 g/dL Albumin/Globulin Ratio 1.3 (1.0-2.7) Arterial Blood pH 7.302 (7.350-7.450) 7.345 (7.350-7.450) Arterial Blood Partial Pressure CO2 72.4 mmHg (35.0-45.0) 73.2 mmHg (35.0-45.0) Arterial Blood Partial Pressure O2 62.2 mmHg (75.0-100.0) 83.2 mmHg (75.0-100.0) Arterial Blood HCO3 35.0 mmol/L (22.0-26.0) 39.1 mmol/L (22.0-26.0) Arterial Blood Oxygen Saturation 90.1 % (92.0-98.0) 95.5 % (92.0-98.0) Arterial Blood Base Excess 6.0 10.3 John Test Positive Positive Test 06/30/17 03:50 Sodium Level 146 mEQ/L (135-145) Potassium Level 4.8 mEQ/L (3.4-4.9) Chloride Level 100 mEQ/L (98-107) Carbon Dioxide Level 38 mEQ/L (20-30) Anion Gap 8 (5-15) Blood Urea Nitrogen 32 mg/dL (7-23) Creatinine 2.0 mg/dL (0.7-1.2) Estimat Glomerular Filtration Rate mL/min (>60) Glucose Level 99 mg/dL (74-106) Calcium Level 9.5 mg/dL (8.6-10.2) Pro-B-Type Natriuretic Peptide 615 pg/mL (0-450) Objective: WDWN NAD improved breath sounds bilaterally without rhonchi or wheeze [id number] without MRG; rate controlled NABS nontender no HSM no CC 1+ edema- slightly improved alert nonfocal Micro: Microbiology Date/Time Source Procedure Growth Status 06/28/17 04:55 Nasal Nares MRSA Culture - Final NO METHICILLIN RESISTANT STAPH AUREUS... Complete 06/28/17 04:55 Rectum VRE Culture - Final NO VANCOMYCIN RESISTANT ENTEROCOCCUS ... Complete Accucheck: 114 SHIMON MOHR Jun 30, 2017 17:01
[2017-07-01 00:53] VITALS: BP 120/72
[2017-07-01 04:00] VITALS: BP 128/64
[2017-07-01 06:40] LABS: ANION GAP 7 (5-15); CALCIUM 9.3 mg/dL (8.6-10.2); CARBON DIOXIDE 40 mEQ/L (20-30); CHLORIDE 98 mEQ/L (98-107); CREATININE 1.7 mg/dL (0.7-1.2); HEMOLYSIS 3; POTASSIUM 4.4 mEQ/L (3.4-4.9); SODIUM 145 mEQ/L (135-145)
--- NOTE | 2017-07-01 07:20 | General Progress Note ---
Assessment/Plan Problem List: (1) CHF (congestive heart failure) ICD Codes: I50.9 - Heart failure, unspecified SNOMED: 64359470 Qualifiers: Qualified Codes: I50.9 - Heart failure, unspecified (2) Proteinuria ICD Codes: R80.9 - Proteinuria, unspecified SNOMED: 81637498 Qualifiers: Qualified Codes: R80.9 - Proteinuria, unspecified (3) Chronic kidney disease (CKD) ICD Codes: N18.9 - Chronic kidney disease, unspecified SNOMED: 170784032 Qualifiers: Qualified Codes: N18.9 - Chronic kidney disease, unspecified (4) Rapid atrial fibrillation ICD Codes: I48.91 - Unspecified atrial fibrillation SNOMED: 825114622 Status: stable Assessment/Plan diuretic rx monitor on tele monitor labs and renal fxn pt/ot Subjective ROS Limited/Unobtainable: No Constitutional: Reports: malaise, weakness HEENT: Reports: no symptoms Cardiovascular: Reports: no symptoms Respiratory: Reports: cough, shortness of breath Gastrointestinal/Abdominal: Reports: no symptoms Genitourinary: Reports: no symptoms Neurologic/Psychiatric: Reports: no symptoms Endocrine: Reports: no symptoms Hematologic/Lymphatic: Reports: no symptoms Allergies: Coded Allergies: No Known Allergies (Unverified , 06/07/17) All Systems: reviewed and negative except above Subjective no events. less sob. no chest pain renal fxn improving. . Objective Last 24 Hour Vital Signs Date Time Temp Pulse Resp B/P (MAP) Pulse Ox O2 Delivery O2 Flow Rate FiO2 07/01/17 04:26 62 07/01/17 04:00 97.3 58 20 128/64 91 Nasal Cannula 4.0 36 07/01/17 00:53 97.8 58 24 120/72 82 Nasal Cannula 4.0 07/01/17 00:00 66 06/30/17 22:59 60 139/82 06/30/17 20:33 60 18 Nasal Cannula 4.0 36 06/30/17 20:31 93 Nasal Cannula 4.0 36 06/30/17 20:31 Nasal Cannula 4.0 36 06/30/17 20:00 98.0 65 20 139/82 93 Nasal Cannula 3.5 06/30/17 17:00 67 28 132/71 96 Nasal Cannula 3.0 06/30/17 16:00 67 06/30/17 16:00 98.1 65 25 142/77 94 Nasal Cannula 3.0 06/30/17 15:00 69 25 138/77 94 Nasal Cannula 3.0 06/30/17 14:00 63 27 107/88 95 Nasal Cannula 3.0 06/30/17 13:00 62 27 137/65 95 Nasal Cannula 3.0 06/30/17 12:00 98.5 66 28 137/85 94 Nasal Cannula 3.0 06/30/17 12:00 65 06/30/17 11:00 59 30 119/69 93 Nasal Cannula 3.0 06/30/17 10:00 62 28 152/60 94 Nasal Cannula 3.0 06/30/17 09:30 66 20 95 3.0 32 06/30/17 09:23 70 142/64 06/30/17 09:00 65 24 142/64 94 Nasal Cannula 3.0 06/30/17 08:00 67 06/30/17 08:00 67 27 148/71 93 Nasal Cannula 3.0 Laboratory Tests 07/01/17 06:00: Sodium Level 145, Potassium Level 4.4, Chloride Level 98, Carbon Dioxide Level 40H, Anion Gap 7, Blood Urea Nitrogen 33H, Creatinine 1.7H, Estimat Glomerular Filtration Rate , Glucose Level 109H, Calcium Level 9.3, Magnesium Level 2.2, Pro-B-Type Natriuretic Peptide 933H Height (Feet): 5 Height (Inches): 11.00 Weight (Pounds): 251 General Appearance: WD/WN, lethargic Neck: supple Cardiovascular: regular rhythm Respiratory/Chest: chest wall non-tender, lungs clear, normal breath sounds, no respiratory distress Abdomen: normal bowel sounds, non tender, soft Edema: trace edema Neurologic: managed services consultant II-XII grossly normal, no motor/sensory deficits, alert, oriented x 3, responsive EMMANUEL LEARY Jul 01, 2017 07:20
[2017-07-01 08:00] VITALS: BP 139/72
[2017-07-01] MEDS: Aspirin Baby 81mg ORAL SCH (08:52)
[2017-07-01] MEDS: Amiodarone 200mg tab ORAL SCH ×2 (08:52→20:29)
[2017-07-01] MEDS: ALPRAZolam 0.5mg tab ORAL SCH ×2 (08:53→18:00)
[2017-07-01] MEDS: Eliquis 2.5mg tablet ORAL SCH ×2 (08:53→18:01)
[2017-07-01] MEDS: Furosemide 40mg tab ORAL SCH (08:53)
--- NOTE | 2017-07-01 11:17 | Diagnostic Imaging Report ---
Indication: Shortness of breath Technique: XRAY CHEST 1 V Comparison: 06/27/17 Findings: Examination is limited. Cardiomediastinal silhouette is grossly stable. Sternotomy wires are present. Atherosclerotic changes are seen. There is interstitial edema. Bibasilar atelectasis versus infiltrates are again noted, right greater than left. Osseous structures are stable. Impression: Limited exam without obvious interval change from 06/27/17.
[2017-07-01 12:00] VITALS: BP 127/76
--- NOTE | 2017-07-01 12:15 | Progress Note ---
DATE: 06/30/2017 CARDIOLOGY PROGRESS NOTE Subjective: The patient is off IV Cardizem and amiodarone drip. He is on oral dose amiodarone and beta-blockade. He remains in sinus rhythm. Heart rate is mostly in the 60s. Shortness of breath has decreased. He still uses BiPAP at night. OBJECTIVE: Vital Signs: Blood pressure 136/77, pulse 69, and respirations 25. No fevers. NECK: Jugular venous pressure is slightly elevated. LUNGS: Diminished breath sounds. Cardiac: Regular rhythm and rate. Normal S1 and S2 with a fourth heart sound. ABDOMEN: Soft. EXTREMITIES: Trace edema. Laboratory Data: Sodium 146, potassium 4.8, bicarbonate 38, BUN 32, and creatinine 2.0 Pro-natriuretic peptide 615. IMPRESSION: 1. Paroxysmal atrial fibrillation, now in sinus rhythm. 2. Hypertensive heart disease. 3. Acute on chronic diastolic congestive heart failure. 4. Dehydration and hyponatremia post diuresis. 5. Acute on chronic renal failure, improved. 6. Chronic obstructive pulmonary disease with exacerbation and acute bronchospasm. PLAN: 1. Hold intravenous diuretics. 2. Transition to maintenance dose of oral form. 3. Continue amiodarone loading by oral route. 4. Titrate beta-yovani. 5. Increase free water. 6. Recheck laboratory studies. 7. Continue apixaban for cardioembolic prophylaxis. Derrick Burch M.D. DR: GEORGES JOB#: [id number] CC:
--- NOTE | 2017-07-01 13:12 | Critical Care Progress Note ---
Assessment/Plan Assessment/Plan IMPRESSION aflutter/fib CAD CABG diabetes possible Asthma CRI leg edema pulmonary edema sleep apnea acute on chronic CO2 retention PLAN cxr and labs noted and stable PO rate control cards evaluation appreciated anticoagulation per cards BIPAP at HS and PRN tele monitor dc planning medications/laboratory data/nursing notes reviewed in detail note reviewed and edited care discussed with RN and RT Critical Care - Subjective Interval Events: stable in tele no distress at present Condition: stable EKG Rhythm: Sinus Rhythm I&O: Intake and Output 07/01/17 07/02/17 19:00 07:00 Intake Total 360 ml Output Total 250 ml Balance 110 ml Intake Oral 360 ml Output Urine Total 250 ml # Voids 1 Critical Care - Objective Last 24 Hour Vital Signs Date Time Temp Pulse Resp B/P (MAP) Pulse Ox O2 Delivery O2 Flow Rate FiO2 07/01/17 12:00 97.7 68 18 127/76 94 Nasal Cannula 4.0 07/01/17 12:00 66 07/01/17 08:53 65 139/72 07/01/17 08:15 Nasal Cannula 4.0 36 07/01/17 08:15 66 20 Nasal Cannula 4.0 36 07/01/17 08:15 95 Nasal Cannula 4.0 36 07/01/17 08:00 64 07/01/17 08:00 98.4 65 20 139/72 95 Room Air 07/01/17 04:26 62 07/01/17 04:00 97.3 58 20 128/64 91 Nasal Cannula 4.0 36 07/01/17 00:53 97.8 58 24 120/72 82 Nasal Cannula 4.0 07/01/17 00:00 66 06/30/17 22:59 60 139/82 06/30/17 20:33 60 18 Nasal Cannula 4.0 36 06/30/17 20:31 93 Nasal Cannula 4.0 36 06/30/17 20:31 Nasal Cannula 4.0 36 06/30/17 20:00 98.0 65 20 139/82 93 Nasal Cannula 3.5 06/30/17 17:00 67 28 132/71 96 Nasal Cannula 3.0 06/30/17 16:00 67 06/30/17 16:00 98.1 65 25 142/77 94 Nasal Cannula 3.0 06/30/17 15:00 69 25 138/77 94 Nasal Cannula 3.0 06/30/17 14:00 63 27 107/88 95 Nasal Cannula 3.0 Labs: Labs Test 06/28/17 22:52 06/29/17 05:45 06/29/17 09:17 06/30/17 03:50 Arterial Blood pH 7.302 (7.350-7.450) 7.345 (7.350-7.450) Arterial Blood Partial Pressure CO2 72.4 mmHg (35.0-45.0) 73.2 mmHg (35.0-45.0) Arterial Blood Partial Pressure O2 62.2 mmHg (75.0-100.0) 83.2 mmHg (75.0-100.0) Arterial Blood HCO3 35.0 mmol/L (22.0-26.0) 39.1 mmol/L (22.0-26.0) Arterial Blood Oxygen Saturation 90.1 % (92.0-98.0) 95.5 % (92.0-98.0) Arterial Blood Base Excess 6.0 10.3 John Test Positive Positive White Blood Count 8.1 K/UL (4.8-10.8) Red Blood Count 4.18 M/UL (4.70-6.10) Hemoglobin 13.6 G/DL (14.2-18.0) Hematocrit 42.1 % (42.0-52.0) Mean Corpuscular Volume 101 FL (80-99) Mean Corpuscular Hemoglobin 32.4 PG (27.0-31.0) Mean Corpuscular Hemoglobin Concent 32.2 G/DL (32.0-36.0) Red Cell Distribution Width 14.1 % (11.6-14.8) Platelet Count 170 K/UL (150-450) Mean Platelet Volume 7.8 FL (6.5-10.1) Neutrophils (%) (Auto) 66.5 % (45.0-75.0) Lymphocytes (%) (Auto) 21.3 % (20.0-45.0) Monocytes (%) (Auto) 10.2 % (1.0-10.0) Eosinophils (%) (Auto) 0.8 % (0.0-3.0) Basophils (%) (Auto) 1.2 % (0.0-2.0) Sodium Level 143 mEQ/L (135-145) 146 mEQ/L (135-145) Potassium Level 4.7 mEQ/L (3.4-4.9) 4.8 mEQ/L (3.4-4.9) Chloride Level 97 mEQ/L (98-107) 100 mEQ/L (98-107) Carbon Dioxide Level 35 mEQ/L (20-30) 38 mEQ/L (20-30) Anion Gap 11 (5-15) 8 (5-15) Blood Urea Nitrogen 32 mg/dL (7-23) 32 mg/dL (7-23) Creatinine 2.1 mg/dL (0.7-1.2) 2.0 mg/dL (0.7-1.2) Estimat Glomerular Filtration Rate mL/min (>60) mL/min (>60) Glucose Level 111 mg/dL (74-106) 99 mg/dL (74-106) Calcium Level 9.4 mg/dL (8.6-10.2) 9.5 mg/dL (8.6-10.2) Pro-B-Type Natriuretic Peptide 1275 pg/mL (0-450) 615 pg/mL (0-450) Test 07/01/17 06:00 Sodium Level 145 mEQ/L (135-145) Potassium Level 4.4 mEQ/L (3.4-4.9) Chloride Level 98 mEQ/L (98-107) Carbon Dioxide Level 40 mEQ/L (20-30) Anion Gap 7 (5-15) Blood Urea Nitrogen 33 mg/dL (7-23) Creatinine 1.7 mg/dL (0.7-1.2) Estimat Glomerular Filtration Rate mL/min (>60) Glucose Level 109 mg/dL (74-106) Calcium Level 9.3 mg/dL (8.6-10.2) Magnesium Level 2.2 mg/dL (1.7-2.5) Pro-B-Type Natriuretic Peptide 933 pg/mL (0-450) Objective: WDWN NAD improved breath sounds bilaterally without rhonchi or wheeze [id number] without MRG; rate controlled NABS nontender no HSM no CC 1+ edema- slightly improved alert nonfocal reviewed and edited Accucheck: 114 SHIMON MOHR Jul 01, 2017 13:12
[2017-07-01 16:11] VITALS: BP 123/50
[2017-07-01 20:00] VITALS: BP 154/78
[2017-07-02] VITALS (7 sets, daily range): BP systolic 113–142; BP diastolic 67–75
--- NOTE | 2017-07-02 08:10 | Critical Care Progress Note ---
Assessment/Plan Assessment/Plan IMPRESSION aflutter/fib CAD CABG diabetes possible Asthma CRI leg edema pulmonary edema sleep apnea acute on chronic CO2 retention PLAN cxr and labs noted and stable PO meds with rate control cards evaluation appreciated anticoagulation per cards noted BIPAP at HS and PRN tele monitor dc planning to SNF or home medications/laboratory data/nursing notes reviewed in detail note reviewed and edited care discussed with RN and RT Critical Care - Subjective Interval Events: stable alert using BIPAP at HS on oxygen during the day Condition: improving EKG Rhythm: Sinus Rhythm Critical Care - Objective Last 24 Hour Vital Signs Date Time Temp Pulse Resp B/P (MAP) Pulse Ox O2 Delivery O2 Flow Rate FiO2 07/02/17 07:56 97.5 53 20 134/70 96 Bi-pap 07/02/17 04:00 97.9 60 20 130/75 92 Room Air 07/02/17 04:00 58 07/02/17 03:31 69 22 95 Facial 40 07/02/17 01:03 80 22 95 Facial 40 07/02/17 00:00 98.4 64 20 142/67 88 Nasal Cannula 5.0 07/02/17 00:00 61 07/01/17 23:21 80 26 93 Facial 40 07/01/17 22:27 76 33 98 Facial 28 07/01/17 20:28 84 154/64 07/01/17 20:07 Nasal Cannula 4.0 36 07/01/17 20:06 88 Nasal Cannula 4.0 36 07/01/17 20:05 82 38 Bi-pap 28 07/01/17 20:01 71 36 97 Facial 28 07/01/17 20:00 63 07/01/17 20:00 97.0 68 20 154/78 96 Nasal Cannula 4.0 36 07/01/17 19:50 64 18 Nasal Cannula 4.0 36 07/01/17 19:50 Nasal Cannula 4.0 36 07/01/17 19:50 96 Nasal Cannula 4.0 36 07/01/17 16:11 98.8 68 22 123/50 95 Nasal Cannula 5.0 07/01/17 16:00 65 07/01/17 12:00 97.7 68 18 127/76 94 Nasal Cannula 4.0 07/01/17 12:00 66 07/01/17 08:53 65 139/72 07/01/17 08:15 Nasal Cannula 4.0 36 07/01/17 08:15 66 20 Nasal Cannula 4.0 36 07/01/17 08:15 95 Nasal Cannula 4.0 36 Labs: Laboratory Tests Test 07/02/17 05:40 Sodium Level Pending Potassium Level Pending Chloride Level Pending Carbon Dioxide Level Pending Blood Urea Nitrogen Pending Creatinine Pending Estimat Glomerular Filtration Rate Pending Glucose Level Pending Calcium Level Pending Total Bilirubin Pending Aspartate Amino Transf (AST/SGOT) Pending Alanine Aminotransferase (ALT/SGPT) Pending Alkaline Phosphatase Pending Total Protein Pending Albumin Pending Globulin Pending Triglycerides Level Pending Cholesterol Level Pending LDL Cholesterol Pending HDL Cholesterol Pending Cholesterol/HDL Ratio Pending Thyroid Stimulating Hormone (TSH) Pending Objective: WDWN NAD improved breath sounds bilaterally without rhonchi or wheeze [id number] without MRG; rate controlled NABS nontender no HSM no CC 1+ edema- slightly improved alert nonfocal reviewed and edited Accucheck: 114 SHIMON MOHR Jul 02, 2017 08:10
[2017-07-02 08:15] LABS: ALANINE AMINOTRANSFERASE 14 U/L (3-41); ALBUMIN/GLOBULIN RATIO 0.7 (1.0-2.7); ANION GAP 7 (5-15); ASPARTATE AMINO TRANSFERASE 19 U/L (5-40); CALCIUM 9.4 mg/dL (8.6-10.2); CHLORIDE 97 mEQ/L (98-107); CHOLESTEROL 110 mg/dL (< 200); CHOLESTEROL/HDL RATIO 3.1 (3.3-4.4); CREATININE 1.8 mg/dL (0.7-1.2); HEMOLYSIS 7; POTASSIUM 4.7 mEQ/L (3.4-4.9); SODIUM 146 mEQ/L (135-145); TOTAL PROTEIN 8.2 g/dL (6.6-8.7)
[2017-07-02 08:35] LABS: CARBON DIOXIDE 42 mEQ/L (20-30)
--- NOTE | 2017-07-02 08:55 | General Progress Note ---
Assessment/Plan Problem List: (1) CHF (congestive heart failure) ICD Codes: I50.9 - Heart failure, unspecified SNOMED: 78655616 Qualifiers: Qualified Codes: I50.9 - Heart failure, unspecified (2) Proteinuria ICD Codes: R80.9 - Proteinuria, unspecified SNOMED: 44396010 Qualifiers: Qualified Codes: R80.9 - Proteinuria, unspecified (3) Chronic kidney disease (CKD) ICD Codes: N18.9 - Chronic kidney disease, unspecified SNOMED: 324436406 Qualifiers: Qualified Codes: N18.9 - Chronic kidney disease, unspecified (4) Rapid atrial fibrillation ICD Codes: I48.91 - Unspecified atrial fibrillation SNOMED: 918810534 Status: stable, progressing Assessment/Plan diuretic rx monitor on tele monitor labs and renal fxn pt/ot repat abg and cxr Subjective ROS Limited/Unobtainable: Yes Constitutional: Reports: malaise, weakness HEENT: Reports: no symptoms Cardiovascular: Reports: no symptoms Respiratory: Reports: cough, shortness of breath Gastrointestinal/Abdominal: Reports: no symptoms Genitourinary: Reports: no symptoms Neurologic/Psychiatric: Reports: no symptoms Endocrine: Reports: no symptoms Hematologic/Lymphatic: Reports: no symptoms Allergies: Coded Allergies: No Known Allergies (Unverified , 06/07/17) All Systems: reviewed and negative except above Subjective no events. more sob? on bipap. desaturates when taken. no fever or chills. Objective Last 24 Hour Vital Signs Date Time Temp Pulse Resp B/P (MAP) Pulse Ox O2 Delivery O2 Flow Rate FiO2 07/02/17 07:56 97.5 53 20 134/70 96 Bi-pap 07/02/17 07:35 58 34 95 Facial 40 07/02/17 04:00 97.9 60 20 130/75 92 Room Air 07/02/17 04:00 58 07/02/17 03:31 69 22 95 Facial 40 07/02/17 01:03 80 22 95 Facial 40 07/02/17 00:00 98.4 64 20 142/67 88 Nasal Cannula 5.0 07/02/17 00:00 61 07/01/17 23:21 80 26 93 Facial 40 07/01/17 22:27 76 33 98 Facial 28 07/01/17 20:28 84 154/64 07/01/17 20:07 Nasal Cannula 4.0 36 07/01/17 20:06 88 Nasal Cannula 4.0 36 07/01/17 20:05 82 38 Bi-pap 28 07/01/17 20:01 71 36 97 Facial 28 07/01/17 20:00 63 07/01/17 20:00 97.0 68 20 154/78 96 Nasal Cannula 4.0 36 07/01/17 19:50 64 18 Nasal Cannula 4.0 36 07/01/17 19:50 Nasal Cannula 4.0 36 07/01/17 19:50 96 Nasal Cannula 4.0 36 07/01/17 16:11 98.8 68 22 123/50 95 Nasal Cannula 5.0 07/01/17 16:00 65 07/01/17 12:00 97.7 68 18 127/76 94 Nasal Cannula 4.0 07/01/17 12:00 66 Laboratory Tests 07/02/17 05:40: Sodium Level 146H, Potassium Level 4.7, Chloride Level 97L, Carbon Dioxide Level 42*H, Anion Gap 7, Blood Urea Nitrogen 26H, Creatinine 1.8H, Estimat Glomerular Filtration Rate , Glucose Level 99, Calcium Level 9.4, Total Bilirubin 1.2, Direct Bilirubin [Pending], Aspartate Amino Transf (AST/SGOT) 19 , Alanine Aminotransferase (ALT/SGPT) 14, Alkaline Phosphatase 39L, Total Protein 8.2, Albumin 3.6, Globulin 4.6, Albumin/Globulin Ratio 0.7L, Triglycerides Level 80, Cholesterol Level 110, LDL Cholesterol 58.000, HDL Cholesterol 36, Cholesterol/HDL Ratio 3.1L, Thyroid Stimulating Hormone (TSH) 1.310 Height (Feet): 5 Height (Inches): 11.00 Weight (Pounds): 251 Objective General Appearance: WD/WN, lethargic Neck: supple Cardiovascular: regular rhythm Respiratory/Chest: chest wall non-tender, lungs clear, normal breath sounds, no respiratory distress Abdomen: normal bowel sounds, non tender, soft Edema: trace edema Neurologic: support staff II-XII grossly normal, no motor/sensory deficits, alert, oriented x 3, responsive EMMANUEL LEARY Jul 02, 2017 08:55
[2017-07-02 08:58] LABS: BILIRUBIN,DIRECT 0.2 mg/dL (0.1-0.3)
[2017-07-02] MEDS: Amiodarone 200mg tab ORAL SCH ×2 (10:04→21:17)
[2017-07-02] MEDS: Aspirin Baby 81mg ORAL SCH (10:04)
[2017-07-02] MEDS: ALPRAZolam 0.5mg tab ORAL SCH ×2 (10:04→17:16)
[2017-07-02] MEDS: Furosemide 40mg tab ORAL SCH (10:04)
--- NOTE | 2017-07-02 10:23 | Diagnostic Imaging Report ---
Indication: Shortness of breath Technique: XRAY CHEST 1 V Comparison: 07/01/17 Findings: Cardiomediastinal silhouette is stable. Sternotomy wires are present. The lungs are unchanged with bilateral interstitial opacities and bilateral lung base atelectasis. Osseous structures are stable. Impression: No change from 07/01/17.
[2017-07-02] MEDS: Eliquis 2.5mg tablet ORAL SCH ×2 (11:03→17:17)
[2017-07-02 11:04] LABS: ABG ALLEN TEST POSITIVE; ABG BASE EXCESS 13.5; ABG PCO2 75.4 mmHg (35.0-45.0)
[2017-07-03 00:09] VITALS: BP 120/56
[2017-07-03 04:09] VITALS: BP 110/54
--- NOTE | 2017-07-03 07:00 | Progress Note ---
DATE: 07/01/2017 CARDIOLOGY PROGRESS NOTE SUBJECTIVE: The patient continues to feel better. Monitored rhythm remained sinus. He has no chest pain, and is less short of breath. OBJECTIVE: VITAL SIGNS: Blood pressure 127/76, pulse 68, respirations 18, and afebrile. NECK: Supple. LUNGS: Few rales. CARDIAC: Regular rhythm and rate. Normal S1 and S2 with a fourth heart sound. A 1/6 systolic apical murmur. ABDOMEN: Soft. EXTREMITIES: Trace edema. LABORATORY AND DIAGNOSTIC DATA: Sodium 145, potassium 4.4, bicarbonate 40, BUN 33, and creatinine 1.7. Pro-natriuretic peptide 933. Chest x-ray revealed atelectasis versus infiltrates, right greater than left. IMPRESSION: 1. Paroxysmal atrial fibrillation, now maintaining sinus rhythm. 2. Hypertensive heart disease with controlled blood pressure. 3. Acute on chronic diastolic congestive heart failure, clinically compensated. 4. 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 5. Possible pneumonia. 6. Acute on chronic respiratory acidosis. PLAN: 1. Maintenance dose amiodarone once loading complete. 2. Continue beta-blockade. 3. Cardioembolic prophylaxis with apixaban. 4. Continue current antihypertensives. 5. Respiratory management. 6. BiPAP per primary care physician. Derrick Burch M.D. DR: ANJELICA JOB#: [id number] CC:
[2017-07-03 07:50] LABS: BASOPHILS % (AUTO) 1.2 % (0.0-2.0); EOSINOPHILS % (AUTO) 1.6 % (0.0-3.0); LYMPHOCYTES % (AUTO) 23.7 % (20.0-45.0); MEAN CORPUSCULAR HEMOGLOBIN 32.1 PG (27.0-31.0); MEAN CORPUSCULAR HGB CONC 31.9 G/DL (32.0-36.0); MEAN CORPUSCULAR VOLUME 101 FL (80-99); MEAN PLATELET VOLUME 8.1 FL (6.5-10.1); MONOCYTES % (AUTO) 8.9 % (1.0-10.0); NEUTROPHILS % (AUTO) 64.6 % (45.0-75.0); PLATELET COUNT 153 K/UL (150-450); RED BLOOD COUNT 3.86 M/UL (4.70-6.10); RED CELL DISTRIBUTION WIDTH 13.4 % (11.6-14.8); WHITE BLOOD COUNT 6.4 K/UL (4.8-10.8)
[2017-07-03] MEDS ORDERED: Bisacodyl EC 5mg tab ORAL PRN (08:00)
[2017-07-03] MEDS ORDERED: Milk of Magnesia 30ml Ud ORAL PRN (08:00)
--- NOTE | 2017-07-03 08:02 | General Progress Note ---
Assessment/Plan Problem List: (1) CHF (congestive heart failure) ICD Codes: I50.9 - Heart failure, unspecified SNOMED: [id number] Qualifiers: Qualified Codes: I50.9 - Heart failure, unspecified (2) Proteinuria ICD Codes: R80.9 - Proteinuria, unspecified SNOMED: [id number] Qualifiers: Qualified Codes: R80.9 - Proteinuria, unspecified (3) Chronic kidney disease (CKD) ICD Codes: N18.9 - Chronic kidney disease, unspecified SNOMED: [id number] Qualifiers: Qualified Codes: N18.9 - Chronic kidney disease, unspecified (4) Rapid atrial fibrillation ICD Codes: I48.91 - Unspecified atrial fibrillation SNOMED: [id number] Status: stable, progressing Assessment/Plan diuretic rx with caution monitor on tele monitor labs and renal fxn pt/ot repat abg and cxr fluid restriction Subjective ROS Limited/Unobtainable: No Constitutional: Reports: malaise, weakness HEENT: Reports: no symptoms Cardiovascular: Reports: edema Respiratory: Reports: shortness of breath Gastrointestinal/Abdominal: Reports: no symptoms Genitourinary: Reports: no symptoms Neurologic/Psychiatric: Reports: no symptoms Endocrine: Reports: no symptoms Hematologic/Lymphatic: Reports: no symptoms Allergies: Coded Allergies: No Known Allergies (Unverified , 06/07/17) All Systems: reviewed and negative except above Subjective a little better this am. off bipap. c/o leg swelling. drink "alot of fluid" no cp Objective Last 24 Hour Vital Signs Date Time Temp Pulse Resp B/P (MAP) Pulse Ox O2 Delivery O2 Flow Rate FiO2 07/03/17 04:09 98.1 56 20 110/54 98 Venturi Mask 07/03/17 04:00 60 07/03/17 01:08 70 20 95 Facial 40 07/03/17 00:09 98.1 58 20 120/56 98 Venturi Mask 07/03/17 00:00 64 07/02/17 23:30 72 21 94 Facial 40 07/02/17 21:30 68 24 95 Facial 40 07/02/17 21:17 67 130/73 07/02/17 20:53 98.0 67 20 130/73 97 Nasal Cannula 07/02/17 20:00 70 07/02/17 19:30 Bi-pap 07/02/17 19:30 Bi-pap 07/02/17 19:30 64 20 93 Facial 40 07/02/17 16:02 98.1 58 20 113/73 97 Nasal Cannula 4.0 07/02/17 16:00 58 07/02/17 12:00 54 07/02/17 11:53 97.3 61 22 117/67 96 Bi-pap 07/02/17 10:55 60 22 95 Facial 40 07/02/17 10:05 65 140/67 07/02/17 10:03 65 140/67 07/02/17 09:55 60 29 96 Facial 40 Laboratory Tests 07/02/17 10:50: Arterial Blood pH 7.366, Arterial Blood Partial Pressure CO2 75.4*H, Arterial Blood Partial Pressure O2 53.9L, Arterial Blood HCO3 42.2H, Arterial Blood Oxygen Saturation 86.4L, Arterial Blood Base Excess 13.5, John Test Positive 07/03/17 06:20: White Blood Count [Pending], Red Blood Count [Pending], Hemoglobin [Pending], Hematocrit [Pending], Mean Corpuscular Volume [Pending], Mean Corpuscular Hemoglobin [Pending], Mean Corpuscular Hemoglobin Concent [Pending], Red Cell Distribution Width [Pending], Platelet Count [Pending], Mean Platelet Volume [ Pending], Neutrophils (%) (Auto) [Pending], Lymphocytes (%) (Auto) [Pending], Monocytes (%) (Auto) [Pending], Eosinophils (%) (Auto) [Pending], Basophils (%) (Auto) [Pending], Sodium Level [Pending], Potassium Level [Pending], Chloride Level [Pending], Carbon Dioxide Level [Pending], Blood Urea Nitrogen [Pending], Creatinine [Pending], Estimat Glomerular Filtration Rate [Pending], Glucose Level [Pending], Calcium Level [Pending], Magnesium Level [Pending], Total Bilirubin [Pending], Aspartate Amino Transf (AST/SGOT) [Pending], Alanine Aminotransferase (ALT/SGPT) [Pending], Alkaline Phosphatase [Pending], Pro-B- Type Natriuretic Peptide [Pending], Total Protein [Pending], Albumin [Pending], Globulin [Pending] Height (Feet): 5 Height (Inches): 11.00 Weight (Pounds): 251 Objective General Appearance: WD/WN, lethargic Neck: supple Cardiovascular: regular rhythm Respiratory/Chest: chest wall non-tender, lungs clear, normal breath sounds, no respiratory distress Abdomen: normal bowel sounds, non tender, soft Edema: trace edema Neurologic: telegraph editor II-XII grossly normal, no motor/sensory deficits, alert, oriented x 3, responsive EMMANUEL LEARY Jul 03, 2017 08:02
[2017-07-03 08:26] VITALS: BP 127/65
[2017-07-03 08:31] LABS: MAGNESIUM 2.3 MG/DL (1.8-2.4)
--- NOTE | 2017-07-03 08:33 | Cardiology Report ---
APPROVED REPORT EXAM: Two-dimensional and M-mode echocardiogram with Doppler and color Doppler. INDICATION Congestive Heart Failure M-Mode DIMENSIONS IVSd1.5 (0.7-1.1cm)Left Atrium (MM)3.9 (1.6-4.0cm) LVDd3.7 (3.5-5.6cm)Aortic Root3.5 (2.0-3.7cm) PWd1.2 (0.7-1.1cm)Aortic Cusp Exc.2.0 (1.5-2.0cm) LVDs2.8 (2.5-4.0cm) PWs1.6 cm Normal left ventricular chamber size, systolic function and wall motion. Left ventricular ejection fraction estimated to be 55-60 %. Mild left ventricular hypertrophy. No evidence of pericardial effusion. All other cardiac chamber sizes are within normal limits. Moderate left atrial enlargement. Heavy focal aortic valve sclerosis with adequate cusp excursion. Mildly thickened mitral valve leaflets with normal excursion. Normal mitral annulus and aortic root calcification. Normal pulmonic valve structure. Normal tricuspid valve structure. IVC dilated at 2.4 cm and without physiologic collapse, estimated RAP is 15 mmHg. A color flow and spectral Doppler study was performed and revealed: Mild to moderate aortic regurgitation. Mild to moderate mitral regurgitation. Mitral inflow indicate normal left ventricular diastolic function. Mild tricuspid regurgitation. Tricuspid systolic velocities suggests peak right ventricular systolic pressure of 26 mmHg. Mild pulmonic regurgitation present.
[2017-07-03] MEDS: ALPRAZolam 0.5mg tab ORAL SCH ×2 (09:00→18:00)
[2017-07-03] MEDS ORDERED: Amiodarone 200mg tab ORAL SCH (09:00)
[2017-07-03] MEDS: Eliquis 2.5mg tablet ORAL SCH ×2 (10:00→18:00)
[2017-07-03] MEDS: Docusate 100mg cap ORAL SCH ×2 (10:00→18:00)
[2017-07-03 10:04] LABS: ALANINE AMINOTRANSFERASE 21 U/L (12-78); ALBUMIN/GLOBULIN RATIO 0.7 (1.0-2.7); ANION GAP 7 (5-15); ASPARTATE AMINO TRANSFERASE 26 U/L (15-37); CALCIUM 9.2 MG/DL (8.5-10.1); CARBON DIOXIDE 34 MMOL/L (21-32); CHLORIDE 97 MMOL/L (98-107); CREATININE 1.8 MG/DL (0.55-1.30); POTASSIUM 4.5 MMOL/L (3.5-5.1); SODIUM 138 MMOL/L (136-145); TOTAL PROTEIN 6.7 G/DL (6.4-8.2)
[2017-07-03 10:36] LABS: BILIRUBIN,DIRECT 0.3 MG/DL (0.0-0.3)
--- NOTE | 2017-07-03 11:17 | Critical Care Progress Note ---
Assessment/Plan Assessment/Plan IMPRESSION aflutter/fib CAD CABG diabetes possible Asthma CRI leg edema pulmonary edema sleep apnea acute on chronic CO2 retention PLAN cxr and labs noted and stable PO meds with rate control cards evaluation appreciated anticoagulation per cards noted BIPAP at HS and PRN tele monitor dc planning to SNF or home today pending daughter's approval medications/laboratory data/nursing notes reviewed in detail note reviewed and edited care discussed with RN and RT Critical Care - Subjective Interval Events: care reviewed and discussed stable for dc d/w daughter - to make final decision today EKG Rhythm: Sinus Rhythm I&O: Intake and Output 07/03/17 07/04/17 19:00 07:00 # Bowel Movements 1 Critical Care - Objective Last 24 Hour Vital Signs Date Time Temp Pulse Resp B/P (MAP) Pulse Ox O2 Delivery O2 Flow Rate FiO2 07/03/17 10:00 71 127/65 07/03/17 08:26 98.1 71 22 127/65 98 Nasal Cannula 5.0 07/03/17 07:37 88 Nasal Cannula 4.0 36 07/03/17 07:37 Nasal Cannula 4.0 36 07/03/17 04:09 98.1 56 20 110/54 98 Venturi Mask 07/03/17 04:00 60 07/03/17 01:08 70 20 95 Facial 40 07/03/17 00:09 98.1 58 20 120/56 98 Venturi Mask 07/03/17 00:00 64 07/02/17 23:30 72 21 94 Facial 40 07/02/17 21:30 68 24 95 Facial 40 07/02/17 21:17 67 130/73 07/02/17 20:53 98.0 67 20 130/73 97 Nasal Cannula 07/02/17 20:00 70 07/02/17 19:30 Bi-pap 07/02/17 19:30 Bi-pap 07/02/17 19:30 64 20 93 Facial 40 07/02/17 16:02 98.1 58 20 113/73 97 Nasal Cannula 4.0 07/02/17 16:00 58 07/02/17 12:00 54 07/02/17 11:53 97.3 61 22 117/67 96 Bi-pap Labs: Laboratory Tests Test 07/03/17 06:20 White Blood Count 6.4 K/UL (4.8-10.8) Red Blood Count 3.86 M/UL (4.70-6.10) L Hemoglobin 12.4 G/DL (14.2-18.0) L Hematocrit 38.9 % (42.0-52.0) L Mean Corpuscular Volume 101 FL (80-99) H Mean Corpuscular Hemoglobin 32.1 PG (27.0-31.0) H Mean Corpuscular Hemoglobin Concent 31.9 G/DL (32.0-36.0) L Red Cell Distribution Width 13.4 % (11.6-14.8) Platelet Count 153 K/UL (150-450) Mean Platelet Volume 8.1 FL (6.5-10.1) Neutrophils (%) (Auto) 64.6 % (45.0-75.0) Lymphocytes (%) (Auto) 23.7 % (20.0-45.0) Monocytes (%) (Auto) 8.9 % (1.0-10.0) Eosinophils (%) (Auto) 1.6 % (0.0-3.0) Basophils (%) (Auto) 1.2 % (0.0-2.0) Sodium Level 138 MMOL/L (136-145) Potassium Level 4.5 MMOL/L (3.5-5.1) Chloride Level 97 MMOL/L (98-107) L Carbon Dioxide Level 34 MMOL/L (21-32) H Anion Gap 7 (5-15) Blood Urea Nitrogen 23 mg/dL (7-18) H Creatinine 1.8 MG/DL (0.55-1.30) H Estimat Glomerular Filtration Rate mL/min (>60) Glucose Level 93 MG/DL (74-106) Calcium Level 9.2 MG/DL (8.5-10.1) Magnesium Level 2.3 MG/DL (1.8-2.4) Total Bilirubin 1.1 MG/DL (0.2-1.0) H Direct Bilirubin 0.3 MG/DL (0.0-0.3) Aspartate Amino Transf (AST/SGOT) 26 U/L (15-37) Alanine Aminotransferase (ALT/SGPT) 21 U/L (12-78) Alkaline Phosphatase 38 U/L (46-116) L Pro-B-Type Natriuretic Peptide 822 (0-125) H Total Protein 6.7 G/DL (6.4-8.2) Albumin 2.9 G/DL (3.4-5.0) L Globulin 3.8 g/dL Albumin/Globulin Ratio 0.7 (1.0-2.7) L Objective: WDWN NAD stable breath sounds bilaterally without rhonchi or wheeze [id number] without MRG; rate controlled NABS nontender no HSM no CC 1+ edema- no change alert nonfocal weak reviewed and edited Accucheck: 114 SHIMON MOHR Jul 03, 2017 11:17
[2017-07-03 11:56] VITALS: BP 126/69
--- NOTE | 2017-07-03 15:45 | Progress Note ---
DATE: 07/02/2017 CARDIOLOGY PROGRESS NOTE SUBJECTIVE: The patient has less congestion and shortness of breath. Monitored rhythm, sinus. OBJECTIVE: VITAL SIGNS: Blood pressure 134/70, pulse 53, and respiratory rate 20. NECK: Supple. LUNGS: Clear. CARDIAC: Regular. Normal S1 and S2. ABDOMEN: Soft. No edema. LABORATORY DATA: ABG, pH 7.36, pCO2 75, and pO2 53. Sodium is 146, potassium 4.7, bicarbonate 42, BUN 26, and creatinine 1.8. LDL cholesterol is 58. IMPRESSION: 1. Paroxysmal atrial fibrillation. 2. Sinus bradycardia secondary to medications. 3. Acute on chronic diastolic congestive heart failure. 4. Possible pneumonia. 5. Chronic obstructive pulmonary disease. 6. Hypertensive heart disease. 7. Stable angina. 8. History of coronary artery bypass graft. 9. Hypoxia. 10. Acute on chronic respiratory acidosis. 11. Dehydration and hypernatremia secondary to diuretics. PLAN: 1. Decrease amiodarone to maintenance dose 200 mg daily. 2. Continue Eliquis for cardioembolic prophylaxis. 3. Discontinue aspirin to decrease bleeding risk. 4. Maintain statin drug. 5. Discontinue furosemide in view of contraction alkalosis and dehydration with hypernatremia. Derrick Burch M.D. DR: Shayan JOB#: [id number] CC:
[2017-07-03 16:23] VITALS: BP 124/55
--- NOTE | 2017-07-04 06:15 | Progress Note ---
DATE: 07/03/2017 CARDIOLOGY PROGRESS NOTE SUBJECTIVE: The patient remains in sinus rhythm. No chest pain. Less short of breath. No edema. OBJECTIVE: VITAL SIGNS: Blood pressure 124/55, pulse 62, respirations 20, and oxygen saturation 96% on 5 liters. NECK: Supple. LUNGS: Clear. CARDIAC: Regular. Normal S1 and S2. ABDOMEN: Soft. EXTREMITIES: No edema. LABORATORY DATA: White count 6.4, hemoglobin 12.4. Potassium 4.5, bicarbonate 34, BUN 23, and creatinine 1.8. Pro-natriuretic peptide 822. Albumin 2.9. IMPRESSION: 1. Acute paroxysmal atrial fibrillation, now in sinus rhythm, on amiodarone. 2. Moderate protein-calorie malnutrition. 3. Acute on chronic diastolic congestive heart failure, improving. 4. Acute on chronic renal failure, now mostly compensated. 5. Contraction alkalosis, resolved. PLAN: 1. Continue amiodarone maintenance dose. 2. Titrate beta-yovani based on heart rate. 3. Maintenance dose of diuretic as needed. 4. Continue current antihypertensives. 5. Maintain apixaban for cardioembolic prophylaxis. However, if sinus rhythm remains over the next 3 to 6 months, reconsideration for chronic anticoagulation therapy may follow. Derrick Burch M.D. DR: ANJELICA JOB#: [id number] CC:
[2017-07-04] MEDS ORDERED: AMIODARONE HCL400 M1 ORAL (10:45)
--- NOTE | 2017-07-05 09:07 | Discharge Summary ---
Discharge Summary Hospital Course Date of Admission Jun 28, 2017 at 02:16 Date of Discharge Jul 03, 2017 at 19:40 Admitting Diagnosis rapid a-fib, chf HPI Nick Ibrahim is a 76 year old male who was admitted on Jun 28, 2017 at 02: 16 for Rapid A-Fib, Congestive Heart Failure Hospital Course dc summary #[id number] Discharge Medications New Medications: Amiodarone Hcl* (Amiodarone Hcl*) 400 Mg Tablet 200 MG ORAL DAILY, #30 TAB Continued Medications: Alprazolam* (Xanax*) 1 Mg Tablet 1 MG ORAL TWICE A DAY PRN for For Anxiety, TAB Apixaban (Eliquis) 5 Mg Tablet 5 MG PO TWICE A DAY, TAB Atorvastatin Calcium* (Lipitor*) 10 Mg Tablet 10 MG ORAL BEDTIME, TAB Metoprolol Tartrate* (Metoprolol Tartrate*) 100 Mg Tablet 100 MG ORAL EVERY 12 HOURS, TAB Discontinued Medications: Aspirin* (Aspirin*) 81 Mg Tab.chew 81 MG ORAL DAILY, TAB Discharge Condition Upon Discharge: stable Discharge Disposition Patient was discharged to SNF/Subacute Facility(03) Discharge Diagnoses: Discharge Instructions Discharge Instructions Special Instructions I have been assigned to complete a D/C Summary on this account. I was not involved in the patient management Alva Santos NP ([place]) Jul 05, 2017 09:07
--- NOTE | 2017-07-06 00:31 | Discharge Summary 2 SIG ---
DATE OF ADMISSION: 06/28/2017 DATE OF DISCHARGE: 07/03/2017 REASON FOR ADMISSION: 76-year-old male with history of atrial fibrillation, diabetes, hypertension, congestive heart failure, chronic kidney disease at some point required hemodialysis, presented with shortness of breath for one day worse with exertion. He denied chest pain. In the emergency department, he was tachycardic and tachypneic. EKG revealed atrial flutter with 4:1 block. Pro BNP - 1983. He was placed on supplemental oxygen at 3 liters with oxygen saturation of 92%. Heart rate was initially controlled with Cardizem. The patient was admitted to ICU for further management. ADMITTING DIAGNOSES: , 1. Atrial flutter/atrial fibrillation with rapid ventricular response. 2. Congestive heart failure. 3. Coronary artery disease with history of coronary artery bypass graft. 4. Diabetes mellitus. 5. Hypertension. 6. Possible asthma. 7. Chronic renal failure. 8. Leg edema. HOSPITAL STAY: The patient was admitted initially to ICU. The patient was on Cardizem drip. Cardiology consult was requested. The patient was on anticoagulation with Eliquis for cardioembolic prophylaxis. Director Of Accounts Payable started on IV amiodarone loading dose and subsequently rate was controlled and Cardizem drip was stopped. Amiodarone converted to oral. Antihypertensive medications were titrated. The patient initially was on the cautious diuresis with IV Lasix. Renal parameters, electrolytes, intake and output were closely monitored. Supplemental oxygen was provided to keep saturation above 92%. Pulmonary toilet was provided as needed. BiPAP provided at night time and as needed. Lasix was subsequently discontinued in view of contraction alkalosis and dehydration with hypernatremia. Sodium down to 138 and CO2 down to 34 after lasix discontinued. Creatinine trending down after Lasix discontinuation. Pro BNP trended down to 822 from initial 1983. Followup chest x-ray revealed improvement compared to initial chest x-ray, which showed cardiomegaly with congestive heart failure. Echocardiogram revealed preserved ejection fraction of 55% to 60% and right ventricular systolic pressure of 26. The patient with evidence of CO2 retention, acute on chronic per manugrapher. The patient was noncompliant with medications at home and was in need of close monitoring. Daughter was in agreement with transfer the patient to the nursing home facility. The patient was discharged to the nursing home facility. FINAL DIAGNOSES: 1. Paroxysmal atrial flutter/atrial fibrillation with rapid ventricular response, resolved. 2. Acute on chronic diastolic congestive heart failure. 3. Coronary artery disease with history of coronary artery bypass graft. 4. Acute on chronic renal failure (currently mostly compensated). 5. Acute on chronic carbon dioxide retention. 6. Hypertensive heart disease with labile blood pressure. 7. Diabetes mellitus. 8. Acute myocardial ischemia in the setting of ischemic heart disease and prior coronary artery bypass graft. 9. Ischemic heart disease. 10. Acute on chronic respiratory acidosis. 11. Sleep apnea. 12. Pulmonary edema,- resolved. DISCHARGE MEDICATIONS: See medication reconciliation list. DISCHARGE INSTRUCTIONS: The patient was discharged to nursing home facility. FOLLOWUP: Followup with medical doctor at the facility. Lele Kellogg M.D. I have been assigned to dictate discharge summary on this account and I was not involved in the patient's management. Alva ParksSeaview Hospitalkatty N.PGail DR: DAVEY JOB#: [id number] CC: AUDRA
--- NOTE | 2017-07-06 23:16 | Cardiology Report ---
APPROVED REPORT EKG Measurement Heart [id number] P221 [id number] Atrial flutter with 2:1 AV conduction Septal infarct, age undetermined Abnormal ECG
--- NOTE | 2017-07-06 23:16 | Cardiology Report ---
APPROVED REPORT EKG Measurement Heart [id number] Atrial flutter with 4:1 AV conduction Abnormal ECG
--- NOTE | 2017-07-06 23:28 | Cardiology Report ---
APPROVED REPORT EKG Measurement Heart [id number] Sinus bradycardia Possible Left atrial enlargement T wave abnormality, consider anterior ischemia Prolonged QT Abnormal ECG
== END 2017-07-03 19:40 | DRG 291 ==
LOC: EDBD 23:13 → EMR 23:23 → 2E 06-28 02:16 → EDBEDREQ 06-28 04:03 → ICU 06-28 07:16 → 2E 06-30 17:15
PROC: 5A09457 Assistance with Respiratory Ventilation, 24-96 Consecutive Hours, Continuous Positive Airway Pressure (ICD-10-PCS; principal; 2017-06-28)
DX: I13.0 Hypertensive heart and chronic kidney disease with heart failure and stage 1 through stage 4 chronic kidney disease, or unspecified chronic kidney disease (principal); I50.33 Acute on chronic diastolic (congestive) heart failure; J18.9 Pneumonia, unspecified organism; N17.9 Acute kidney failure, unspecified; E87.2 Acidosis; E44.0 Moderate protein-calorie malnutrition; E11.22 Type 2 diabetes mellitus with diabetic chronic kidney disease; I48.92 Unspecified atrial flutter; I27.20 Pulmonary hypertension, unspecified; E87.1 Hypo-osmolality and hyponatremia; J44.1 Chronic obstructive pulmonary disease with (acute) exacerbation; I48.0 Paroxysmal atrial fibrillation; E86.0 Dehydration; I51.3 Intracardiac thrombosis, not elsewhere classified; Z95.1 Presence of aortocoronary bypass graft; N18.9 Chronic kidney disease, unspecified; Z91.14 Patient's other noncompliance with medication regimen; G47.30 Sleep apnea, unspecified; Z79.01 Long term (current) use of anticoagulants; I25.118 Atherosclerotic heart disease of native coronary artery with other forms of angina pectoris; I05.1 Rheumatic mitral insufficiency
CPT/HCPCS: 36415; 36600; 71010; 80048; 80053; 80061; 81003; 82248; 82550; 82553; 82803; 82962; 83735; 83880; 84443; 84484; 85025; 85610; 85730; 87081; 93005; 93306; 94660; 94664; 94760; J0282; J1815